=== PATIENT | female | born 1940 | race Caucasian/White ===

== ENCOUNTER 2020-10-23 09:42 | Emergency (ER) | payer MEDICARE, SELFPAY ==
[2020-10-23 09:44] VITALS: BP 146/84; PULSE 64; RESP 16; TEMP 36.4; O2SAT 99; BMI 25.0
--- NOTE | 2020-10-23 10:04 | EKG12_ITS ---
Test Reason : CP Blood Pressure : / mmHG Vent. Rate : 067 BPM Atrial Rate : 067 BPM P-R Int : 134 ms QRS Dur : 080 ms QT Int : 404 ms P-R-T Axes : 014 -08 014 degrees QTc Int : 426 ms Normal sinus rhythm Normal ECG Confirmed by SHAUNA CABALLERO, ALMAZ ([id number]), photo editor MINERVA MCKEON ([id number]) on 10/26/2020 1:09:38 PM Referred By: ELOISE Confirmed By:ALMAZ VILLATORO MD
--- NOTE | 2020-10-23 10:06 | EDS_ITS ---
HPI History of Present Illness Chief Complaint: Chest Pain Narrative Narrative: 80-year-old female presenting with chest pain which she describes as aching in the left upper chest. This does not radiate. This was intermittent for the last couple of days. She cannot tell me how long it lasts. She has felt short of breath with this but did not feel lightheaded and did not get diaphoretic. She states she has not had any pain since yesterday. Patient states she has no history of DVT/PE. While interviewing her she became very tearful and states that one of her cats 2 weeks ago and she has been having trouble dealing with this and feels more confused and depressed. She is also worried that her other cat the same age as not doing well. She is not suicidal or homicidal but she states the world is closing in on her. [facility] Medical History (Updated 10/23/20 @ 09:45 by Joslyn Aguilar) Asthma Home Medications NK 10/23/20 [History Last Taken Unknown] Allergy/AdvReac Type Severity Reaction Status Date / Time No Known Allergies Allergy Verified 10/23/20 09:43 Social History Smoking Status: Never smoker ROS [facility] ED Constitutional Constitutional ED: Denies chills, fever(s) or sweats Eyes Eyes: Denies blurry vision or change in vision ENT ENT ED: Denies rhinorrhea or sore throat Cardiovascular Cardiovascular: Reports chest pain; Denies palpitations or racing heartbeat Respiratory/Chest Respiratory/Chest: Reports cough and dyspnea Gastrointestinal Gastrointestinal: Denies abdominal pain or nausea Genitourinary Genitourinary ED: Denies dysuria or hematuria Musculoskeletal Musculoskeletal: Denies arthralgias or myalgias Integumentary Denies abscess or rash Neurologic Neurologic: Denies headache(s), paresthesias or weakness Psychiatric Psychiatric: Reports depression; Denies suicidal ideation or suicidal thoughts EXAM Physical Exam Const Vital Signs: 10/23/20 09:44 10/23/20 09:48 10/23/20 10:13 Temperature 97.5 F L Temperature Source Temporal Pulse Rate 64 Respiratory Rate 16 Respiratory Effort Short of Breath Respiratory Pattern Normal Blood Pressure 146/84 H Blood Pressure Mean 104 Pulse Ox 99 99 Oxygen Delivery Method Room Air Room Air 10/23/20 12:08 Temperature Temperature Source Pulse Rate Respiratory Rate 16 Respiratory Effort Respiratory Pattern Blood Pressure 158/78 H Blood Pressure Mean Pulse Ox 98 Oxygen Delivery Method Positive well developed General Appearance ED: well developed and NAD HEENT normocephalic and atraumatic Eyes PERRL and EOMs intact bilaterally Chest Wall inspection of chest normal and palpation of chest normal Resp normal respiratory effort Effort and Inspection: respiratory distress Cardio regular rate and regular rhythm Extremity normal to inspection General Extremety ED: Negative for tenderness Neuro oriented x3 Sensorium / Orientation: awake and alert Psych Mood & Affect: depressed and tearful Skin no rashes or lesions noted and no wounds Heart Score History: Slightly/Non-Suspicious ECG: Normal Age: >/= 65 years Risk Factors: 1 or 2 Risk Factors Troponin: </= Normal Limit Score: 3 MDM MDM MDM Narrative Medical decision making narrative: Patient presenting with intermittent chest pain and confusion which seems to be related to the of her cat and depression. She is tearful on exam and concern for her other cat that the same age. Patient had EKG performed on arrival which is sinus rhythm at 87 bpm without signs of ischemic change or dysrhythmia my interpretation. Chest x-ray showed no acute cardiopulmonary process on my interpretation and the radiologist does agree. Lab work-up is unremarkable. Her D-dimer was elevated however. She had CTA of the chest which did not show any pulmonary emboli or dissection. There is no pneumonia present. Troponin was negative. Patient was offered outpatient therapy by social work to help her with her depression however she was too concerned she would have to leave her cat 3 times a week to do this. She states that she will follow-up with her regular physician as needed. Impression: 1. Chest pain 2. Depression Lab Data Attestation: I reviewed the patient's lab results. Labs: Laboratory Results - last 24 hr 10/23/20 10/23/20 10/23/20 09:57 09:57 10:10 WBC 5.4 RBC 4.36 Hgb 12.8 Hct 40.6 MCV 93.1 MCH 29.4 MCHC 31.5 L RDW Std Deviation 46.2 H RDW Coeff of Vashti 13.4 Plt Count 207 MPV 9.5 Immature Gran % (Auto) 0.400 Neut % (Auto) 64.6 Lymph % (Auto) 24.9 White % (Auto) 6.9 Eos % (Auto) 2.8 Baso % (Auto) 0.4 Absolute Neuts (auto) 3.5 Absolute Lymphs (auto) 1.34 Nucleated RBC % 0 D-Dimer Quant (PE/DVT) 1.95 H* Sodium 140 Potassium 3.9 Chloride 107 Carbon Dioxide 26.0 Anion Gap 7 BUN 19 H Creatinine 1.09 H Estim Creat Clear Calc 32.01 Est GFR (MDRD) Af Amer 62 Est GFR (MDRD) Non-Af 51 L BUN/Creatinine Ratio 17.4 Glucose 144 H Calcium 8.8 Troponin I High Sens 4.5 Radiography Diagnostic Testing: Radiology Impression Chest X-Ray 10/23/20 10:20 IMPRESSION: No acute abnormalities seen. Electronically Signed: Mukesh Blanco MD at 10:46 EDT , Service support , Chest CTA 10/23/20 10:41 IMPRESSION: Mild degree of increased markings at the lung bases with bronchiectasis suggestive of scarring. No evidence of pulmonary embolism. Electronically Signed: Mukesh Blanco MD at 11:22 EDT , Service support , Discharge Plan Triage Chief Complaint: Chest Pain ED Provider: Alexys Hernández Dx/Rx/DC Orders Instructions: ED Chest Pain, Noncardiac, ED Depression Prescriptions: No Action NK RF: 0 Primary Care Provider: Javier Santoyo III Referrals: Care Physician,No Primary [NON-STAFF] - Disposition Disposition: Home, Self Care Discharge Date/Time: 10/23/20 12:09
[2020-10-23 10:13] VITALS: O2SAT 99
[2020-10-23 10:15] LABS: Absolute Lymphocyte Count 1.34 X10^3/uL (0.83-4.51); Absolute Neutrophil Count 3.5 X10^3/uL (2.0-7.7); Basophil# 0.02 X10^3/uL; Basophil% 0.4 % (0-1); Eosinophil# 0.15 X10^3/uL; Eosinophils% 2.8 % (0-5); Hematocrit 40.6 % (37-47); Hemoglobin 12.8 g/dL (12.0-15.0); Lymphocyte # 1.34 X10^3/ul (0.83-4.51); Lymphocyte % 24.9 % (19-41); Mean Corp Hgb Conc 31.5 g/dL (32-36); Mean Corpuscular Hgb 29.4 pg (27.0-32.0); Mean Corpuscular Volume 93.1 fL (81-99); Mean Platelet Vol. 9.5 fl (6.2-12.0); Monocyte# 0.37 X10^3/uL; Monocyte% 6.9 % (0-10); NRBC Flagged by Analyzer 0 % (0-5); Neutrophil # 3.49 X10^3/uL (2.7-7.7); Neutrophil % 64.6 % (47-70); Platelet Count 207 K/mm3 (150-450); RBC Distribution Width CV 13.4 % (11.6-14.6); RBC Distribution Width SD 46.2 fl (35.1-43.9); Red Blood Count 4.36 M/mm3 (4.2-5.4); White Blood Count 5.4 K/mm3 (4.4-11.0)
--- NOTE | 2020-10-23 10:20 | RAD_ITS ---
STUDY: X-RAY CHEST REASON FOR EXAM: Female, 80 years old. Intermittent confusion for 2 weeks and chest pain. TECHNIQUE: Single AP portable view of the chest. COMPARISON: None. FINDINGS: EKG electrodes are seen. The lungs are clear and expanded. There is no demonstrated pleural abnormality. Normal size heart. Normal mediastinum and ozzy. Normal visualized pulmonary arteries. There is atherosclerotic tortuosity of the aortic arch and descending thoracic aorta. There are diffuse degenerative changes of the visualized thoracic spine. Normal visualized ribs, clavicles, and shoulders. There is no demonstrated abnormality of the visualized soft tissue structures of the upper abdomen. RAD/Chest 1 View (Portable) IMPRESSION: No acute abnormalities seen. Electronically Signed: Mukesh Blanco MD at 10:46 EDT , Service support ,
--- NOTE | 2020-10-23 10:29 | ED.RN ---
PT GIVES THIS RN PERMISSION TO SHARE MEDICAL INFORMATION WITH PT DAUGHTER ADRIANE. CELL PHONE NUMBER IS [phone], AND ZANDER PHONE [phone].
[2020-10-23 10:31] LABS: Anion Gap 7 (5-15); BUN 19 mg/dL (7-18); BUN/Creat Ratio 17.4 RATIO (10-20); Calcium,Total 8.8 mg/dL (8.5-10.1); Chloride 107 mmol/L (98-107); Creatinine, Serum 1.09 mg/dL (0.55-1.02); EST Glomerular Filtration Rate 51 mL/min (>60); Est Glom Filt Rate - Afr Amer 62 mL/min (>60); Estimated Creatinine Clearance 32.01 ml/min; Glucose 144 mg/dL (74-106); Potassium 3.9 mmol/L (3.5-5.1); Sodium Level 140 mmol/L (136-145); Troponin-I HS 4.5 pg/mL (3.0-53.7)
[2020-10-23 10:32] LABS: D-Dimer Quantitative (DVT/PE) 1.95 FEU/ug/m (0.27-0.49)
--- NOTE | 2020-10-23 10:41 | CT_ITS ---
STUDY: CTA CHEST REASON FOR EXAM: Female, 80 years old. Chest pain RADIATION DOSAGE (If Supplied By Facility): CTDIvol = ( 4.54 ) mGy, DLP = ( 139.78 ) mGycm TECHNIQUE: The examination was performed with the intravenous administration of IV 100mL Isovue-300. Post-processing of the angiographic images was performed, with multiplanar reformation and 3D reconstruction. Individualized dose optimization techniques were used for this CT. COMPARISON: Comparison is made with prior chest radiograph done earlier today. FINDINGS: Normal enhancement of the main pulmonary artery and right and left pulmonary arteries. Normal enhancement of the bilateral peripheral pulmonary arteries. There is no demonstrated pulmonary embolism. There is atherosclerotic calcification of the aortic arch with tortuosity. There is no demonstrated aortic dissection. Normal heart and pericardium. Normal mediastinum. Normal hilar regions. Normal visualized trachea and bronchi. The lungs are well expanded. Mild degree of the increased markings at the lung bases suggestive of mild basilar scarring and/or atelectasis with evidence of bronchiectasis. Normal pleura. Normal chest wall structures. There are degenerative changes of thoracic spine. Normal visualized upper abdomen. CT/CTA Chest W/WO Contrast IMPRESSION: Mild degree of increased markings at the lung bases with bronchiectasis suggestive of scarring. No evidence of pulmonary embolism. Electronically Signed: Mukesh Blanco MD at 11:22 EDT , Service support ,
--- NOTE | 2020-10-23 11:07 | CM.ED ---
Addendum entered by Layne Gutierrez 10/23/20 11:40: SW also provided patient, via nurses discharge paperwork, list of PCP as patient's PCP had retired (Dr. Santoyo). Patient said that she planned to go to her 's PCP but could not recall her 's PCP. Plan: Discharge Home with paperwork Original Note: MIGUEL ANGEL Note Referral source: MD Referral Reason: Patient was crying in her room over the loss of her cat and appears to be depressed. was not offering support. Patient denies SI/HI SW met with patient in the room. No one else was in the room.Patient talked about cat that recently but appropriately was tearful when talking about the loss. Patient talked about how her was fine until a couple of months ago. Patient said that her is confused.. just as bad as me. Patient said that she feels that I am not sure who is in charge and feels at time that I can't take the load. Patient said that her hovers over her and drives me nuts. Patient said that she has just recently spoken to her about getting plots. Patient was provided emotional support. Patient said that she is concerned about finances as her has done the finances for years and she has no idea what is going on in regards to the money and she said I don't want that to affect the children or grandchildren. 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 Patient was provided emotional support. SW discussed counseling and the hospital IOP/PHP program. Patient said that she did not think she would like groups and nor would she fit in in relations to her generation. Patient said that she was unsure about her being alone for period of time. SW discussed the possibility of the [facility] to add support to patient. Patient said that she does not think that there is anything medically wrong with her but it was just overwhelming with her. Patient was also encouraged to talk to her PCP. Patient does not have a PCP but plans to get her 's PCP. SW encouraged patient to speak to her PCP about medication that may assist with depression. Patient verbalized understanding and stated that she knows her brother takes medication for depression and it's helpful. Patient talked about how she is the oldest of 10 children so her siblings come to her for support. Patient said that she is supporting her brother, whose has Lara Gehrig's disease and son has cancer, through having ongoing conversation. Patient was also provided information on [facility] and the services they provide. Patient denied any SI/HI and stated she would be safe at home and had no going home concerns. SW provided list of counseling in the area, Information about [facility] and [facility]. Emotional Support provided. MIGUEL ANGEL updated RN and MD. RN said that patient's daughter, Toya, has her contact information in the chart. SW asked patient if she gave permission for this news writer to speak to her daughter, Toay, and patient voiced this news writer could speak to her daughter, Toya. SW called Toya, patient's daughter. SW updated Toya that this news writer had spoken to her mother, the patient. SW explained providing mother information on counseling, medication via PCP and [facility]. Toya said I don't want anything to give red flags for my parents and then continued on to state that she wants to get to the bottom of what is happening with patient's mother and said Your not a doctor or nurse.. your a social worker clinical and I don't think that is the problem. RN updated. Layne BENITEZ
--- NOTE | 2020-10-23 11:55 | ED.RN ---
PT GIVES THIS RN PERMISSION TO PATRICK WITH THE SON. SON INFORMED OF PLAN OF CARE, AND DISCHARGE.
[2020-10-23 12:08] VITALS: BP 158/78; RESP 16; O2SAT 98
== END 2020-10-23 12:09 | disposition home or self-care (01) ==
PROVIDERS: Emergency Provider Student in an Organized Health Care Education/Training Program; PCP Family Medicine
DX: R07.9 Chest pain, unspecified (principal); F32.9 Major depressive disorder, single episode, unspecified
CPT/HCPCS: 71045; 71275; 80048; 84484; 85025; 85379; 93005; 99285; Q9967; A4216

== ENCOUNTER 2022-01-23 07:42 | Inpatient (IN) | payer MEDICARE, SELFPAY ==
[2022-01-23] VITALS (8 sets, daily range): BP systolic 124–155; BP diastolic 56–89; PULSE 60–68; RESP 15–18; TEMP 36.3–37.7; O2SAT 95–100; BMI 23.3; BMI 23.8
--- NOTE | 2022-01-23 08:00 | CT_ITS ---
STUDY: CT ABDOMEN AND PELVIS WITH CONTRAST REASON FOR EXAM: Female, 81 years old. Diffuse abdominal pain, nausea RADIATION DOSAGE (If Supplied By Facility): CTDIvol = ( 9.99 ) mGy, DLP = ( 760.61 ) mGycm TECHNIQUE: Transaxial images were obtained from the dome of the diaphragm to the symphysis pubis without oral contrast. IV 75mL Isovue-300 was administered. Sagittal and coronal images were reconstructed. Individualized dose optimization techniques were used for this CT. COMPARISON: None. FINDINGS: The visualized lung bases are unremarkable. The visualized portions of the heart are within normal limits. Normal liver. Normal gallbladder and extrahepatic biliary system. Normal spleen. Normal pancreas. Normal bilateral adrenal glands. Normal right kidney. Normal left kidney. Normal visualized stomach. Multiple nondistended fluid-filled small and large bowel loops in all 4 quadrants of the abdomen consistent with a diffuse enteritis. No ileus or obstruction. No perforation or abscess. Appendix not visualized. There is diffuse atherosclerotic calcification of the abdominal aorta with elongation and tortuosity, but without a demonstrated aneurysm. Normal inferior vena cava. Normal retroperitoneum. Normal urinary bladder. The uterus is present, the endometrium cannot be accurately evaluated with CT. There is a calcified uterine fibroid. Normal abdominal wall. There are diffuse degenerative changes of the visualized lumbar spine, and pelvis. CT/Abdomen/Pelvis W IV Cont ONLY IMPRESSION: Multiple nondistended fluid-filled small bowel and large bowel loops in all 4 quadrants of the abdomen consistent with a diffuse enteritis. No perforation, abscess, ileus or obstruction. Uterus is present, the endometrium cannot be accurately evaluated with CT. No free intraperitoneal fluid, air, or suspicious adenopathy Degenerative bony changes Electronically Signed: Manny Chan MD at 9:17 EDT ,
--- NOTE | 2022-01-23 08:02 | EDS_ITS ---
HPI HPI - GI History of Present Illness Chief Complaint: Abd Pain Narrative Narrative: 81-year-old female past medical history of dementia presents via EMS with bilateral lower quadrant abdominal cramping that began this morning. She states that 2 hours ago, she woke from sleep and had abdominal cramping. She has nauseated but has not vomited. She had diarrhea this morning with liquid stool. She states it feels as if she is giving with her cramping. She denies any fevers or chills. No dysuria or hematuria. No blood in her stool. She denies any significant past surgical history to her abdomen. No exacerbating or alleviating factors. She states she is never had abdominal cramping this bad. [facility] Medical History Asthma Home Medications NK 10/23/20 [History Last Taken Unknown] Allergy/AdvReac Type Severity Reaction Status Date / Time No Known Allergies Allergy Verified 10/23/20 09:43 Social History Smoking Status: Never smoker ROS ROS ED ROS Narrative Constitutional: No fever, no chills. HEENT: No sore throat. No neck pain. No loss of vision. No rhinorrhea. Cardiovascular: No chest pain. No palpitations. No pedal edema. Respiratory: No cough, no shortness of breath. Abdominal: Bilateral lower quadrant abdominal pain. Positive nausea. No vomiting. Positive diarrhea/liquid stool. Genitourinary: No dysuria. No hematuria. Musculoskeletal: No myalgias. No arthralgias. Neurologic: No headaches. No dizziness. No lightheadedness. Skin: No rash. No change in color. Psychiatric: No depression. No anxiety. EXAM Physical Exam Narrative Exam Narrative: Afebrile. Vital signs noted. HEENT: Normocephalic. Atraumatic. PERRL, EOMI. Neck soft and supple. No point tenderness or step off. Cardiovascular: Regular rate and rhythm. No murmurs, rubs, or gallops appreciated. Respiratory: No tachypnea. Lungs clear to auscultation bilaterally. Gastrointestinal: Abdomen soft, mild diffuse tenderness to palpation, more so in bilateral lower quadrants and epigastrium, with normoactive to increased bowel sounds. No rebound or guarding. Neurological: Awake. Alert. Nonfocal, nonlateralizing. Skin: No rash. Normal color. No pallor. Musculoskeletal: No pedal edema. Full range of motion extremities. Const Vital Signs: 01/23/22 07:43 Temperature 98.6 F Temperature Source Oral Pulse Rate 68 Respiratory Rate 16 Blood Pressure 155/74 H Blood Pressure Mean 101 Pulse Ox 96 Oxygen Delivery Method Room Air MDM MDM MDM Narrative Medical decision making narrative: Comprehensive work-up was pursued. I obtain basic lab work including CBC, CMP, lipase along with urinalysis. I do feel that given her diarrhea and abdominal tenderness/cramping that CT imaging is warranted. CBC shows normal white count of 6.1 with hemoglobin normal at 13.7, hematocrit 42.7. Platelet count 195. Her CMP shows chloride elevated at 109 with a creatinine of 1.10 and a normal BUN of 17. LFTs are grossly normal. Lipase elevated at 1637. This is consistent with acute pancreatitis. Her urinalysis is negative for infection. CT imaging shows air-fluid levels throughout the small and large bowel consistent with enteritis. There was no inflammation around the pancreas noted, however given her epigastric pain and elevated lipase, I feel she warrants admission for her pancreatitis and enteritis. Patient did decline pain medications such as morphine currently. I discussed patient with Dr. Looney for admission. Disposition is admit in stable condition. Lab Data Attestation: I reviewed the patient's lab results. Labs: Laboratory Results - last 24 hr 01/23/22 01/23/22 01/23/22 08:10 08:10 09:30 WBC 6.1 RBC 4.62 Hgb 13.7 Hct 42.7 MCV 92.4 MCH 29.7 MCHC 32.1 RDW Std Deviation 44.1 H RDW Coeff of Vashti 13.1 Plt Count 195 MPV 9.3 Immature Gran % (Auto) 0.500 Neut % (Auto) 83.2 H Lymph % (Auto) 10.2 L [place] % (Auto) 3.1 Eos % (Auto) 2.8 Baso % (Auto) 0.2 Absolute Neuts (auto) 5.0 Absolute Lymphs (auto) 0.62 L Nucleated RBC % 0 Sodium 142 Potassium 4.2 Chloride 109 H Carbon Dioxide 27.0 Anion Gap 6 BUN 17 Creatinine 1.10 H Estim Creat Clear Calc 31.19 Est GFR (MDRD) Af Amer 61 Est GFR (MDRD) Non-Af 51 L BUN/Creatinine Ratio 15.5 Glucose 99 Calcium 9.0 Total Bilirubin 0.40 AST 26 ALT 29 Alkaline Phosphatase 67 Total Protein 6.6 Albumin 3.3 Globulin 3.3 Albumin/Globulin Ratio 1.0 Lipase 1637 H Urine Color Yellow Urine Clarity Clear Urine pH 5.0 Ur Specific [place] 1.010 Urine Protein Negative Urine Glucose (UA) Normal Urine Ketones Negative Urine Occult Blood 50 H Urine Nitrite Negative Urine Bilirubin Negative Urine Urobilinogen Normal Ur Leukocyte Esterase 100 H Urine RBC 0 SEEN Urine WBC 0-5 SEEN Ur Squamous Epith Cells 0-5 SEEN Urine Bacteria 0 SEEN Urine Mucus 0 SEEN Radiography Diagnostic Testing: Clinical Impression(s) from Imaging Studies Abdomen/Pelvis CT 01/23/22 08:00 IMPRESSION: Multiple nondistended fluid-filled small bowel and large bowel loops in all 4 quadrants of the abdomen consistent with a diffuse enteritis. No perforation, abscess, ileus or obstruction. Uterus is present, the endometrium cannot be accurately evaluated with CT. No free intraperitoneal fluid, air, or suspicious adenopathy Degenerative bony changes Electronically Signed: Manny Chan MD at 9:17 EDT , Discharge Plan Dx/Rx/DC Orders Clinical Impression: Pancreatitis, Enteritis, Diarrhea Disposition Disposition: Acute Care [facility]
[2022-01-23] MEDS: 0.9% Normal Saline 1,000 ML 1000 ML IV (08:20)
[2022-01-23 08:22] LABS: Absolute Lymphocyte Count 0.62 X10^3/uL (0.83-4.51); Basophil# 0.01 X10^3/uL; Basophil% 0.2 % (0-1); Eosinophil# 0.17 X10^3/uL; Eosinophils% 2.8 % (0-5); Hematocrit 42.7 % (37-47); Hemoglobin 13.7 g/dL (12.0-15.0); Lymphocyte # 0.62 X10^3/ul (0.83-4.51); Lymphocyte % 10.2 % (19-41); Mean Corp Hgb Conc 32.1 g/dL (32-36); Mean Corpuscular Hgb 29.7 pg (27.0-32.0); Mean Corpuscular Volume 92.4 fL (81-99); Mean Platelet Vol. 9.3 fl (6.2-12.0); Monocyte# 0.19 X10^3/uL; Monocyte% 3.1 % (0-10); NRBC Flagged by Analyzer 0 % (0-5); Neutrophil # 5.03 X10^3/uL (2.7-7.7); Neutrophil % 83.2 % (47-70); Platelet Count 195 K/mm3 (150-450); RBC Distribution Width CV 13.1 % (11.6-14.6); RBC Distribution Width SD 44.1 fl (35.1-43.9); Red Blood Count 4.62 M/mm3 (4.2-5.4); White Blood Count 6.1 K/mm3 (4.4-11.0)
[2022-01-23 08:38] LABS: AST(SGOT) 26 U/L (15-37); Alanine Aminotransfer ALT/SGPT 29 U/L (13-56); Albumin, Serum 3.3 g/dL (3.2-5.0); Alkaline Phosphatase 67 U/L (45-117); Anion Gap 6 (5-15); BUN 17 mg/dL (7-18); BUN/Creat Ratio 15.5 RATIO (10-20); Chloride 109 mmol/L (98-107); EST Glomerular Filtration Rate 51 mL/min (>60); Est Glom Filt Rate - Afr Amer 61 mL/min (>60); Estimated Creatinine Clearance 31.19 ml/min; Globulin 3.3 g/dL (2.2-4.2); Glucose 99 mg/dL (74-106); Lipase 1637 U/L (73-393); Potassium 4.2 mmol/L (3.5-5.1); Protein, Total 6.6 g/dL (6.4-8.2); Sodium Level 142 mmol/L (136-145)
[2022-01-23 09:34] LABS: Bacteria 0 SEEN /hpf (None Seen); Mucous, Urine 0 SEEN /hpf (<or=2+); Red Blood Cells-Urine 0 SEEN /hpf (0-5)
[2022-01-23 09:45] LABS: Color, Urine Yellow (Yellow); Glucose, Dipstick Normal (Normal); Ketone-Dipstick Negative (Negative); Leukocyte Esterase-Dipstick 100 /ul (Negative); Nitrite-Dipstick Negative (Negative); Occult Blood-Urine 50 /ul (Negative); Protein-Dipstick Negative (Negative); Urine Bilirubin Dipstick Negative (Negative); Urine Clarity Clear (Clear); Urine Urobilinogen Normal (Normal)
[2022-01-23 10:00] LABS: Squamous Epithelial Cells - UA 0-5 SEEN /hpf (5-10); White Blood Cells 0-5 SEEN /hpf (0-5)
--- NOTE | 2022-01-23 10:25 | PCM.HP.STD ---
HPI - General General Date of Admission: 01/23/22 Date of Service: 01/23/22 Chief Complaint: Abdominal pain HPI Narrative MARCO JACQUES, is a 81 F who presents with abdominal pain patient symptoms started in the early hours of the morning of her admission. Pain was located around the umbilical region. Patient did describe the pain as being crampy in nature. She equated her pain being similar to childbirth. Patient did experience diarrhea as well. She however denied any nausea no vomiting. She did deny any subjective fever but experience chills. She presented to the emergency department due to the persistent nature of her symptoms. Imaging studies obtained in the ED did show Multiple nondistended fluid-filled small bowel and large bowel loops in all 4 quadrants of the abdomen consistent with a diffuse enteritis.? No perforation, abscess, ileus or obstruction.. She was also found to have elevated lipase levels. Admitted to regular nursing floor for further management [facility] Medical History Asthma Dementia Home Medications NK 10/23/20 [History Last Taken Unknown] Allergy/AdvReac Type Severity Reaction Status Date / Time No Known Allergies Allergy Verified 10/23/20 09:43 Family History (Updated 01/23/22 @ 10:[address] Esteban Emmanuel MD) Mother Diabetes Social History Smoking Status: Never smoker ROS ROS Narrative GENERAL: Has chills but denies fever HEENT: denies headache, sinus congestion, or drainage, dysphagia RESPIRATORY: denies cough, sputum production, shortness of breath, CARDIAC: denies chest pain, palpitations, orthopnea, PND GASTROINTESTINAL: Abdominal pain and diarrhea GENITOURINARY: denies dysuria, urgency, frequency, heamaturia EXTREMITY: denies swelling MUSCULOSKELETAL: denies current joint pain or tenderness NEUROLOGIC: denies focal numbness, weakness, tingling HEMATOLOGIC: denies easy bruising and/or hemorrhage INTEGUMENT: denies rashes PSYCHIATRIC: denies suicidal or homicidal ideation Vital Signs Vital Signs Vital Signs: 01/23/22 07:43 01/23/22 10:13 Temperature 98.6 F 97.4 F L Temperature Source Oral Oral Pulse Rate 68 61 Respiratory Rate 16 16 Blood Pressure 155/74 H 151/89 H Blood Pressure Mean 101 109 Pulse Ox 96 98 Oxygen Delivery Method Room Air Weight Weight: 58 kg Body Mass Index (BMI) 23.3 Physical Exam Narrative GENERAL: cooperative HEENT: Atraumatic; normocephalic EYES; Anicteric, Normal Conjunctiva NECK; supple, normal thyroid, RESPIRATORY: Diminished to auscultation CARDIOVASCULAR: Regular S1 S2, GI: soft, normoactive bowel sounds, mild periumbilical tenderness : No Renal angle tenderness; EXTREMITIES: No edema, no clubbing, MUSCULOSKELETAL: no muscle wasting NEURO: Awake; no lateralizing signs. SKIN: No Rash PSYCH; Flat affect Results Lab / Micro Data Result Diagrams: 01/23/22 08:10 01/23/22 08:10 Labs: Laboratory Results - last 24 hr 01/23/22 08:10: WBC 6.1, RBC 4.62, Hgb 13.7, Hct 42.7, MCV 92.4, MCH 29.7, MCHC 32.1, RDW Std Deviation 44.1 H, RDW Coeff of Vashti 13.1, Plt Count 195, MPV 9.3, Immature Gran % (Auto) 0.500, Neut % (Auto) 83.2 H, Lymph % (Auto) 10.2 L, [place] % (Auto) 3.1, Eos % (Auto) 2.8, Baso % (Auto) 0.2, Absolute Neuts (auto) 5.0, Absolute Lymphs (auto) 0.62 L, Nucleated RBC % 0 01/23/22 08:10: Sodium 142, Potassium 4.2, Chloride 109 H, Carbon Dioxide 27.0, Anion Gap 6, BUN 17, Creatinine 1.10 H, Estim Creat Clear Calc 31.19, Est GFR (MDRD) Af Amer 61, Est GFR (MDRD) Non-Af 51 L, BUN/Creatinine Ratio 15.5, Glucose 99, Calcium 9.0, Total Bilirubin 0.40, AST 26, ALT 29, Alkaline Phosphatase 67, Total Protein 6.6, Albumin 3.3, Globulin 3.3, Albumin/Globulin Ratio 1.0, Lipase 1637 H 01/23/22 09:30: Urine Color Yellow, Urine Clarity Clear, Urine pH 5.0, Ur Specific [place] 1.010, Urine Protein Negative, Urine Glucose (UA) Normal, Urine Ketones Negative, Urine Occult Blood 50 H, Urine Nitrite Negative, Urine Bilirubin Negative, Urine Urobilinogen Normal, Ur Leukocyte Esterase 100 H, Urine RBC 0 SEEN, Urine WBC 0-5 SEEN, Ur Squamous Epith Cells 0-5 SEEN, Urine Bacteria 0 SEEN, Urine Mucus 0 SEEN Radiology Impression Abdomen/Pelvis CT 01/23/22 08:00 IMPRESSION: Multiple nondistended fluid-filled small bowel and large bowel loops in all 4 quadrants of the abdomen consistent with a diffuse enteritis. No perforation, abscess, ileus or obstruction. Uterus is present, the endometrium cannot be accurately evaluated with CT. No free intraperitoneal fluid, air, or suspicious adenopathy Degenerative bony changes Electronically Signed: Manny Chan MD at 9:17 EDT , Assessment & Plan Assessment/Plan (1) Enteritis: (2) Pancreatitis: PLAN: Plan Patient is an 81-year-old lady admitted with abdominal pain and diarrhea CT of the abdomen obtained did show multiple nondistended fluid-filled small bowel and large bowel loops in all 4 quadrants of the abdomen consistent with a diffuse enteritis.? No perforation, abscess, ileus or obstruction.. She was also found to have elevated lipase levels 1. Acute enteritis ? Possibly viral patient has been admitted to regular nursing floor managed symptomatically with IV fluids antinausea medication as well as pain meds. As part of patient's evaluation ordered to for enteric pathogens, stool for C. difficile and also ordered rapid COVID test 2. Acute pancreatitis ? Etiology not clear at this point CT of the abdomen with normal gallbladder and extrahepatic biliary system. We will monitor with repeat lipase levels in a.m. 3. Dementia Per history ? Patient not sure of her home medication plan is to reconcile patient home meds once accurate list is received 4. Mild intermittent asthma ? Currently not in exacerbation aerosol treatment as needed 5. DVT prophylaxis ? SC Lovenox Advance planning; did discuss with the patient regarding advanced directives as well as CODE STATUS. Did explain the various scenarios involved ( FULL CODE, DNR CCA, DNR CCA with no intubation, and DNR CC and what each meant) patient elected to remain full code with CPR and intubation if needed. Order was placed. Time spent on discussion 18 minutes. Charges/Coding Visit Charges Inpatient E&M: 38659 Init Hosp L2
[2022-01-23] MEDS: Dextrose 5%/0.9% NaCl 1,000 ML 150 ML IV ×2 (12:04→19:27)
[2022-01-23] MEDS: Ceftriaxone 1 GM/50 ML BAG IV (13:42)
[2022-01-23] MEDS: Donepezil HCl 10 MG Tablet PO (21:01)
[2022-01-24 02:00] VITALS: BP 130/67; PULSE 58; RESP 14; TEMP 37.3; O2SAT 95
[2022-01-24] MEDS: Dextrose 5%/0.9% NaCl 1,000 ML 150 ML IV ×2 (02:45→09:33)
[2022-01-24 06:05] LABS: Absolute Neutrophil Count 1.7 X10^3/uL (2.0-7.7); Eosinophil# 0.13 X10^3/uL; Eosinophils% 4.3 % (0-5); Hematocrit 39.9 % (37-47); Hemoglobin 12.8 g/dL (12.0-15.0); Mean Corp Hgb Conc 32.1 g/dL (32-36); Mean Corpuscular Hgb 30.1 pg (27.0-32.0); Mean Corpuscular Volume 93.9 fL (81-99); Mean Platelet Vol. 9.2 fl (6.2-12.0); Monocyte# 0.26 X10^3/uL; Monocyte% 8.7 % (0-10); NRBC Flagged by Analyzer 0 % (0-5); Neutrophil % 56.7 % (47-70); Platelet Count 166 K/mm3 (150-450); RBC Distribution Width CV 13.1 % (11.6-14.6); RBC Distribution Width SD 45.1 fl (35.1-43.9); Red Blood Count 4.25 M/mm3 (4.2-5.4)
[2022-01-24 06:36] LABS: AST(SGOT) 22 U/L (15-37); Alanine Aminotransfer ALT/SGPT 23 U/L (13-56); Albumin, Serum 2.6 g/dL (3.2-5.0); Alkaline Phosphatase 50 U/L (45-117); Anion Gap 5 (5-15); BUN 8 mg/dL (7-18); Bilirubin, Direct 0.07 mg/dL (0.00-0.30); Calcium,Total 8.1 mg/dL (8.5-10.1); Chloride 116 mmol/L (98-107); EST Glomerular Filtration Rate 73 mL/min (>60); Est Glom Filt Rate - Afr Amer 88 mL/min (>60); Estimated Creatinine Clearance 38.94 ml/min; Globulin 2.7 g/dL (2.2-4.2); Glucose 119 mg/dL (74-106); Lipase 145 U/L (73-393); Magnesium 1.8 mg/dL (1.6-2.6); Potassium 3.5 mmol/L (3.5-5.1); Protein, Total 5.3 g/dL (6.4-8.2); Sodium Level 144 mmol/L (136-145)
[2022-01-24 07:45] VITALS: BP 148/60; PULSE 55; RESP 18; TEMP 36.7; O2SAT 95
[2022-01-24] MEDS: Escitalopram Oxalate 10 MG Tablet 5 MG PO (08:02)
[2022-01-24] MEDS: Acetaminophen 325 MG Tablet 650 MG PO (08:02)
--- NOTE | 2022-01-24 09:09 | PCM.PN.HOSP ---
Subjective Subjective DOS: 01/24/22 CC: Multiple BMs Ms. Solis is an 81 y/o female who presented 01/23 with abdominal pain and diarrhea fro 1 day. She was admitted and given IVF and rocephin and is improving from a pain standpoint but has continued to have consistent watery green bowel movements and does have some residual pain as well as anorexia. Tolerated some clear liquids yesterday but no desire to eat. No nausea at this time. Denies SOB, does have some soreness in upper abdomen but no chest pain with movement. Some headache with pain behind the eyes. no swelling, no problems with urination, no other complaints. Objective Data Objective Data Vital Signs: Vital Signs Temp Pulse Resp BP Pulse Ox O2 Del Method 98.1 F 55 L 18 148/60 H 95 Room Air 01/24/22 07:45 01/24/22 07:45 01/24/22 07:45 01/24/22 07:45 01/24/22 07:45 01/24/22 07:45 Oxygen Delivery Method Room Air Weight: 55.5 kg Body Mass Index (BMI) 23.8 Intake & Output: Intake and Output for Last 24 Hours 01/22/22 01/23/22 01/24/22 23:59 23:59 23:59 Intake Total 2130 / 2480 1500 / 1500 Output Total 700 / 1100 600 / 600 Balance 1430 / 1380 900 / 900 Lab / Micro Data Result Diagrams: 01/24/22 05:40 01/24/22 05:40 Labs: Laboratory Results - last 24 hr 01/23/22 09:30: Urine Color Yellow, Urine Clarity Clear, Urine pH 5.0, Ur Specific [place] 1.010, Urine Protein Negative, Urine Glucose (UA) Normal, Urine Ketones Negative, Urine Occult Blood 50 H, Urine Nitrite Negative, Urine Bilirubin Negative, Urine Urobilinogen Normal, Ur Leukocyte Esterase 100 H, Urine RBC 0 SEEN, Urine WBC 0-5 SEEN, Ur Squamous Epith Cells 0-5 SEEN, Urine Bacteria 0 SEEN, Urine Mucus 0 SEEN 01/24/22 05:40: WBC 3.0 L, RBC 4.25, Hgb 12.8, Hct 39.9, MCV 93.9, MCH 30.1, MCHC 32.1, RDW Std Deviation 45.1 H, RDW Coeff of Vashti 13.1, Plt Count 166, MPV 9.2, Immature Gran % (Auto) 0.300, Neut % (Auto) 56.7, Lymph % (Auto) 30.0, [place] % (Auto) 8.7, Eos % (Auto) 4.3, Baso % (Auto) 0.0, Absolute Neuts (auto) 1.7 L, Absolute Lymphs (auto) 0.90, Nucleated RBC % 0 01/24/22 05:40: Sodium 144, Potassium 3.5, Chloride 116 H, Carbon Dioxide 23.0, Anion Gap 5, BUN 8, Creatinine 0.80, Estim Creat Clear Calc 38.94, Est GFR (MDRD) Af Amer 88, Est GFR (MDRD) Non-Af 73, BUN/Creatinine Ratio 10.0, Glucose 119 H, Calcium 8.1 L, Magnesium 1.8, Total Bilirubin 0.20, Direct Bilirubin 0.07, AST 22, ALT 23, Alkaline Phosphatase 50, Total Protein 5.3 L, Albumin 2.6 L, Globulin 2.7, Lipase 145 Micro: Microbiology 01/23/22 11:45 Stool Enteric Bacteriology - Final 01/23/22 11:45 Stool C. difficile DNA Amplification - Final 01/23/22 10:24 Nasal Secretion SARS-CoV-2 Antigen (Rapid) - Final Radiography Diagnostic Testing: Radiology Impression Abdomen/Pelvis CT 01/23/22 08:00 IMPRESSION: Multiple nondistended fluid-filled small bowel and large bowel loops in all 4 quadrants of the abdomen consistent with a diffuse enteritis. No perforation, abscess, ileus or obstruction. Uterus is present, the endometrium cannot be accurately evaluated with CT. No free intraperitoneal fluid, air, or suspicious adenopathy Degenerative bony changes Electronically Signed: Manny Chan MD at 9:17 EDT , Physical Exam Const alert and no apparent distress Constitutional Narrative: Oriented HEENT normocephalic and head/scalp atraumatic HEENT Narrative: dry oral mucosa Eyes Eyes Narrative: EOM grossly intact, anicteric Neck supple Resp normal respiratory effort and clear to auscultation bilaterally Cardio regular rate and regular rhythm GI soft to palpation GI Narrative: No rebound, guarding, rigidity, tenderness mild at time of exam, + bowel sounds Extremity Extremity Narrative: No edema appreciated Neuro moves all extremities Neuro Narrative: No overt focal deficits appreciated Psych Psych Narrative: Cooperative Assessment & Plan Assessment/Plan (1) Enteritis: (2) Pancreatitis: PLAN: Plan 1. Acute enteritis ? Possibly viral patient has been admitted to regular nursing floor managed symptomatically with IV fluids antinausea medication as well as pain meds Started on cipro anx start date 01/23 Is improving with current management but continues to have very frequent watery BMs with minimal PO tolerance at this time Continuse to require inpt management for IVF, currently at 150/hr Cdiff andstool specifmen negative Covid negative 2. Acute pancreatitis ? Epigrastric tenderness +lipase of [address] suggestive of enteritis and not pancreatitis but given 2/3 + pt meets criteria LFTs wnl, tenderness improving Lipase did go to 145 Advance diet as tolerated Continue IVF and monitoring 3. Dementia Per history On donepezil HR 55, between 50's and 60's No symptoms of low HR identified If HR goes lower can consider d/c of donepezil 4. Mild intermittent asthma ? Currently not in exacerbation aerosol treatment as needed 5. DVT prophylaxis ? SC Delmis Fong MD Charges/Coding Visit Charges Inpatient E&M: 99520 Subs Hosp L2
[2022-01-24] MEDS: Enoxaparin 40 MG/0.4 ML Syringe SC (09:33)
[2022-01-24] MEDS: Ceftriaxone 1 GM/50 ML BAG IV (09:33)
--- NOTE | 2022-01-24 11:00 | CASEMGMT ---
RN ELIAS Face to Face with patient for initial transition planning/care coordination assessment. RN CM introduced self and role at [facility]. Patient lying in bed, alert and oriented, at bedside. Patient willing to participate in assessment and is able to answer all questions appropriately. Care providers, pharmacy, and demographics verified. Patient wishes to discharge home, denies need for home health at this time. Patient states she has no further needs or concerns at this time. CM to follow for discharge planning needs that may arise. PCP: Mirta Specialists: none Preferred Pharmacy: [facility] Insurance: [facility] Prescription Benefit: yes Living Will/HPOA: yes, daughter Toya LNOK: , daughter Living Arrangements: Patient lives with in a 2 story home. Patient is independent and able to ambulate stairs. Transportation: daughter, DME/HHC: Patient has raised toilet and shower chair at home. Patient denies previous HHC or SNF Disposition Plan: Patient to discharge home with family support and follow-up plans in place. Olivia ALCANTARN, RN, CM
[2022-01-24 14:04] VITALS: BP 166/64; PULSE 55; RESP 18; TEMP 36.1; O2SAT 98
[2022-01-24] MEDS: Ensure Clear 120 ML Liquid PO ×2 (14:07→16:58)
[2022-01-24 16:12] VITALS: O2SAT 98
[2022-01-24] MEDS: 0.9% Saline Lock 10 ML Syringe IV (16:59)
[2022-01-24 19:53] VITALS: BP 147/72; PULSE 57; RESP 18; TEMP 36.7; O2SAT 97
[2022-01-24] MEDS: Donepezil HCl 10 MG Tablet PO (20:00)
[2022-01-24] MEDS: Mag Hydrox/Al Hydrox/Simeth 30 ML UDC PO (22:24)
[2022-01-25] MEDS: Ondansetron 4 MG/2 ML Vial IV (00:40)
[2022-01-25 02:50] VITALS: BP 143/64; PULSE 62; RESP 16; TEMP 36.9; O2SAT 95
[2022-01-25 04:50] LABS: Absolute Lymphocyte Count 1.28 X10^3/uL (0.83-4.51); Absolute Neutrophil Count 1.4 X10^3/uL (2.0-7.7); Basophil# 0.01 X10^3/uL; Basophil% 0.3 % (0-1); Eosinophil# 0.23 X10^3/uL; Eosinophils% 6.8 % (0-5); Hematocrit 40.2 % (37-47); Hemoglobin 12.8 g/dL (12.0-15.0); Lymphocyte # 1.28 X10^3/ul (0.83-4.51); Lymphocyte % 38.1 % (19-41); Mean Corp Hgb Conc 31.8 g/dL (32-36); Mean Corpuscular Hgb 29.3 pg (27.0-32.0); Mean Platelet Vol. 9.1 fl (6.2-12.0); Monocyte# 0.41 X10^3/uL; Monocyte% 12.2 % (0-10); NRBC Flagged by Analyzer 0 % (0-5); Neutrophil # 1.42 X10^3/uL (2.7-7.7); Neutrophil % 42.3 % (47-70); Platelet Count 171 K/mm3 (150-450); RBC Distribution Width SD 43.9 fl (35.1-43.9); Red Blood Count 4.37 M/mm3 (4.2-5.4); White Blood Count 3.4 K/mm3 (4.4-11.0)
[2022-01-25 05:20] LABS: AST(SGOT) 19 U/L (15-37); Alanine Aminotransfer ALT/SGPT 22 U/L (13-56); Albumin, Serum 2.7 g/dL (3.2-5.0); Alkaline Phosphatase 50 U/L (45-117); Anion Gap 6 (5-15); BUN 4 mg/dL (7-18); BUN/Creat Ratio 5.3 RATIO (10-20); Calcium,Total 8.4 mg/dL (8.5-10.1); Chloride 114 mmol/L (98-107); Creatinine, Serum 0.75 mg/dL (0.55-1.02); EST Glomerular Filtration Rate 78 mL/min (>60); Est Glom Filt Rate - Afr Amer 95 mL/min (>60); Estimated Creatinine Clearance 31.15 ml/min; Globulin 2.8 g/dL (2.2-4.2); Glucose 88 mg/dL (74-106); Potassium 3.4 mmol/L (3.5-5.1); Protein, Total 5.5 g/dL (6.4-8.2); Sodium Level 144 mmol/L (136-145)
[2022-01-25 09:05] VITALS: BP 146/63; PULSE 57; RESP 18; TEMP 36.7; O2SAT 96
[2022-01-25] MEDS: Ceftriaxone 1 GM/50 ML BAG IV (09:08)
[2022-01-25] MEDS: Escitalopram Oxalate 10 MG Tablet 5 MG PO (09:08)
[2022-01-25] MEDS: 0.9% Saline Lock 10 ML Syringe IV (09:08)
[2022-01-25] MEDS: Enoxaparin 40 MG/0.4 ML Syringe SC (09:08)
[2022-01-25] MEDS: Potassium Chloride Oral Tablet 20 MEQ 40 MEQ PO (12:07)
[2022-01-25] MEDS: Ensure Clear 120 ML Liquid PO ×3 (12:07→21:41)
[2022-01-25 14:31] VITALS: BP 135/66; PULSE 56; RESP 18; TEMP 36.6; O2SAT 96
--- NOTE | 2022-01-25 16:03 | CASEMGMT ---
Social Work Pt aware HCPOA is not on file with [facility]. Pt named Daughter, Toya as agent. Pt unsure about LW at this time. Pt to bring in HCPOA at next visit to [facility]. MEENU Peterson
[2022-01-25 16:18] VITALS: O2SAT 96
--- NOTE | 2022-01-25 17:33 | PCM.PN.HOSP ---
Subjective Subjective DOS 01/25/22 CC: Weak, diarrhea Pt continues to have multiple episodes of diarrhea and feels weak and tired. Appetite sub optimal and intermittent nausea. Also reports nausea last night. Urinating well, no chest pain or SOB. No other complaints this AM> Objective Data Objective Data Vital Signs: Vital Signs Temp Pulse Resp BP Pulse Ox O2 Del Method 97.9 F 56 L 18 135/66 H 96 Room Air 01/25/22 14:31 01/25/22 14:31 01/25/22 14:31 01/25/22 14:31 01/25/22 16:18 01/25/22 16:18 Oxygen Delivery Method Room Air Weight: 55.5 kg Body Mass Index (BMI) 23.8 Intake & Output: Intake and Output for Last 24 Hours 01/23/22 01/24/22 01/25/22 23:59 23:59 23:59 Intake Total 2130 / 2480 3650 / 3650 850 / 850 Output Total 700 / 1100 1700 / 1700 700 / 700 Balance 1430 / 1380 1950 / 1950 150 / 150 Lab / Micro Data Result Diagrams: 01/25/22 04:13 01/25/22 04:13 Labs: Laboratory Results - last 24 hr 01/25/22 04:13: WBC 3.4 L, RBC 4.37, Hgb 12.8, Hct 40.2, MCV 92.0, MCH 29.3, MCHC 31.8 L, RDW Std Deviation 43.9, RDW Coeff of Vashti 13.0, Plt Count 171, MPV 9.1, Immature Gran % (Auto) 0.300, Neut % (Auto) 42.3 L, Lymph % (Auto) 38.1, [place] % (Auto) 12.2 H, Eos % (Auto) 6.8 H, Baso % (Auto) 0.3, Absolute Neuts (auto) 1.4 L, Absolute Lymphs (auto) 1.28, Nucleated RBC % 0 01/25/22 04:13: Sodium 144, Potassium 3.4 L, Chloride 114 H, Carbon Dioxide 24.0, Anion Gap 6, BUN 4 L, Creatinine 0.75, Estim Creat Clear Calc 31.15, Est GFR (MDRD) Af Amer 95, Est GFR (MDRD) Non-Af 78, BUN/Creatinine Ratio 5.3 L, Glucose 88, Calcium 8.4 L, Total Bilirubin 0.20, AST 19, ALT 22, Alkaline Phosphatase 50, Total Protein 5.5 L, Albumin 2.7 L, Globulin 2.8, Albumin/Globulin Ratio 1.0 Micro: Microbiology 01/23/22 11:45 Stool Enteric Bacteriology - Final 01/23/22 11:45 Stool C. difficile DNA Amplification - Final 01/23/22 10:24 Nasal Secretion SARS-CoV-2 Antigen (Rapid) - Final Physical Exam Const alert and no apparent distress Constitutional Narrative: Oriented HEENT normocephalic and head/scalp atraumatic Eyes Eyes Narrative: EOM grossly intact, anicteric Neck supple Resp normal respiratory effort and clear to auscultation bilaterally Cardio regular rate and regular rhythm GI soft to palpation GI Narrative: No rebound, guarding, rigidity, tenderness mild at time of exam, + bowel sounds Extremity Extremity Narrative: No edema appreciated Neuro moves all extremities Neuro Narrative: No overt focal deficits appreciated Psych Psych Narrative: Cooperative Assessment & Plan Assessment/Plan (1) Enteritis: (2) Pancreatitis: PLAN: Plan 1. Acute enteritis ? Possibly viral patient has been admitted to regular nursing floor managed symptomatically with IV fluids antinausea medication as well as pain meds Started on cipro anx start date 01/23 Is improving with current management but continues to have very frequent watery BMs with minimal PO tolerance at this time Continue to require inpt management for IVF, currently at 150/hr Cdiff and stool specimen negative Covid negative 01/25: Continues to have significant diarrhea, slightly improved but slowly. Additionally nausea, supportive care at this time 2. Acute pancreatitis ? Epigrastric tenderness +lipase of [address] suggestive of enteritis and not pancreatitis but given 2/3 + pt meets criteria LFTs wnl, tenderness improving Lipase did go to 145 Advance diet as tolerated Continue IVF and monitoring 3. Dementia Per history On donepezil HR 55, between 50's and 60's No symptoms of low HR identified If HR goes lower can consider d/c of donepezil 4. Mild intermittent asthma ? Currently not in exacerbation aerosol treatment as needed 5. DVT prophylaxis ? SC Delmis Fong MD Charges/Coding Visit Charges Inpatient E&M: 45839 Subs Hosp L2
[2022-01-25 20:30] VITALS: BP 126/70; PULSE 67; RESP 18; TEMP 36.9; O2SAT 98
[2022-01-25] MEDS: Donepezil HCl 10 MG Tablet PO (21:41)
[2022-01-26 03:03] VITALS: BP 116/61; PULSE 51; RESP 16; TEMP 36.6; O2SAT 95
[2022-01-26] MEDS: Menthol/Lanolin/Calamine/Znox 113 GM Tube 1 APPLIC TOPICAL ×5 (03:05→21:22)
[2022-01-26 06:16] LABS: Absolute Lymphocyte Count 1.47 X10^3/uL (0.83-4.51); Absolute Neutrophil Count 1.7 X10^3/uL (2.0-7.7); Basophil# 0.01 X10^3/uL; Basophil% 0.3 % (0-1); Eosinophil# 0.27 X10^3/uL; Eosinophils% 7.1 % (0-5); Hematocrit 40.6 % (37-47); Hemoglobin 13.1 g/dL (12.0-15.0); Lymphocyte # 1.47 X10^3/ul (0.83-4.51); Lymphocyte % 38.6 % (19-41); Mean Corp Hgb Conc 32.3 g/dL (32-36); Mean Corpuscular Hgb 29.6 pg (27.0-32.0); Mean Corpuscular Volume 91.9 fL (81-99); Mean Platelet Vol. 9.5 fl (6.2-12.0); Monocyte# 0.37 X10^3/uL; Monocyte% 9.7 % (0-10); NRBC Flagged by Analyzer 0 % (0-5); Neutrophil # 1.69 X10^3/uL (2.7-7.7); Neutrophil % 44.3 % (47-70); Platelet Count 186 K/mm3 (150-450); Red Blood Count 4.42 M/mm3 (4.2-5.4); White Blood Count 3.8 K/mm3 (4.4-11.0)
[2022-01-26 06:44] LABS: ALB/GLOB Ratio 0.9 RATIO (0.9-2.4); AST(SGOT) 18 U/L (15-37); Alanine Aminotransfer ALT/SGPT 22 U/L (13-56); Albumin, Serum 2.7 g/dL (3.2-5.0); Alkaline Phosphatase 53 U/L (45-117); Anion Gap 6 (5-15); BUN 6 mg/dL (7-18); BUN/Creat Ratio 6.9 RATIO (10-20); Calcium,Total 8.4 mg/dL (8.5-10.1); Chloride 113 mmol/L (98-107); Creatinine, Serum 0.88 mg/dL (0.55-1.02); EST Glomerular Filtration Rate 66 mL/min (>60); Est Glom Filt Rate - Afr Amer 80 mL/min (>60); Globulin 3.1 g/dL (2.2-4.2); Glucose 81 mg/dL (74-106); Magnesium 1.7 mg/dL (1.6-2.6); Potassium 3.9 mmol/L (3.5-5.1); Protein, Total 5.8 g/dL (6.4-8.2); Sodium Level 143 mmol/L (136-145)
--- NOTE | 2022-01-26 06:56 | PN.HOSP_ITS ---
Subjective Subjective DOS 01/26/22 CC continued diarrhea Pt reports she is slowly feeling better but multiple BMs overnight and still hav ing them every 2-3 hours though duration slightly longer and consistency slightly thickening. Tolerated liquids yesterday without significant nausea. Willing to advance diet. No chest pain or SOB. Abdominal pain still improved, unchanged from yesterday. Objective Data Objective Data Vital Signs: Vital Signs Temp Pulse Resp BP Pulse Ox O2 Del Method 98 F 51 L 16 116/61 95 Room Air 01/26/22 03:03 01/26/22 03:03 01/26/22 03:03 01/26/22 03:03 01/26/22 03:03 01/26/22 03:03 Oxygen Delivery Method Room Air Weight: 55.5 kg Body Mass Index (BMI) 23.8 Intake & Output: Intake and Output for Last 24 Hours 01/24/22 01/25/22 01/26/22 23:59 23:59 23:59 Intake Total 3650 / 3650 850 / 850 200 / 200 Output Total 1700 / 1700 700 / 700 Balance 1950 / 1950 150 / 150 200 / 200 Lab / Micro Data Result Diagrams: 01/26/22 05:09 01/26/22 05:09 Labs: Laboratory Results - last 24 hr 01/26/22 05:09: WBC 3.8 L, RBC 4.42, Hgb 13.1, Hct 40.6, MCV 91.9, MCH 29.6, MCHC 32.3, RDW Std Deviation 44.0 H, RDW Coeff of [place]hti 13.0, Plt Count 186, MPV 9.5, Immature Gran % (Auto) 0.000, Neut % (Auto) 44.3 L, Lymph % (Auto) 38.6, [place] % (Auto) 9.7, Eos % (Auto) 7.1 H, Baso % (Auto) 0.3, Absolute Neuts (auto) 1.7 L, Absolute Lymphs (auto) 1.47, Nucleated RBC % 0 01/26/22 05:09: Sodium 143, Potassium 3.9, Chloride 113 H, Carbon Dioxide 24.0, Anion Gap 6, BUN 6 L, Creatinine 0.88, Estim Creat Clear Calc 35.40, Est GFR (MDRD) Af Amer 80, Est GFR (MDRD) Non-Af 66, BUN/Creatinine Ratio 6.9 L, Glucose 81, Calcium 8.4 L, Magnesium 1.7, Total Bilirubin 0.20, AST 18, ALT 22, Alkaline Phosphatase 53, Total Protein 5.8 L, Albumin 2.7 L, Globulin 3.1, Albumin/Globulin Ratio 0.9 Micro: Microbiology 01/23/22 11:45 Stool Enteric Bacteriology - Final 01/23/22 11:45 Stool C. difficile DNA Amplification - Final 01/23/22 10:24 Nasal Secretion SARS-CoV-2 Antigen (Rapid) - Final Physical Exam Const alert and no apparent distress Constitutional Narrative: Oriented HEENT normocephalic and head/scalp atraumatic Eyes Eyes Narrative: EOM grossly intact, anicteric Neck supple Resp normal respiratory effort and clear to auscultation bilaterally Cardio regular rate and regular rhythm GI soft to palpation GI Narrative: No rebound, guarding, rigidity, tenderness mild at time of exam, + bowel sounds Extremity Extremity Narrative: No edema appreciated Neuro moves all extremities Neuro Narrative: No overt focal deficits appreciated Psych Psych Narrative: Cooperative Assessment & Plan Assessment/Plan (1) Enteritis: (2) Pancreatitis: PLAN: Plan 1. Acute enteritis ? Likely viral patient has been admitted to regular nursing floor managed symptomatically with IV fluids antinausea medication as well as pain meds Started on cipro anx start date 01/23 Is improving with current management but continues to have very frequent watery BMs with minimal PO tolerance at this time Continue to require inpt management for IV and poor PO intake Cdiff and stool specimen negative Covid negative 01/25: Continues to have significant diarrhea, slightly improved but slowly. Additionally nausea, supportive care at this time 01/26: Will advance diet, still has significant GI losses, will replace and continue supportive care. Is improving slowly 2. Acute pancreatitis ? Epigrastric tenderness +lipase of [address] suggestive of enteritis and not pancreatitis but given 2/3 + pt meets criter ia LFTs wnl, tenderness improving Lipase did go to 145 Advance diet as tolerated Continue IVF and monitoring, abd pain almost resolved 3. Dementia Per history On donepezil HR 55, between 50's and 60's- will hold donepezil given low HR and diarrhea 4. Mild intermittent asthma ? Currently not in exacerbation aerosol treatment as needed 5. DVT prophylaxis ? SC Lovenox Suha Fong MD Charges/Coding Visit Charges Inpatient E&M: 21273 Subs Hosp L2
[2022-01-26 08:28] VITALS: BP 151/70; PULSE 60; RESP 18; TEMP 36.9; O2SAT 99
[2022-01-26] MEDS: Ceftriaxone 1 GM/50 ML BAG IV (10:21)
[2022-01-26] MEDS: Enoxaparin 40 MG/0.4 ML Syringe SC (10:21)
[2022-01-26] MEDS: Escitalopram Oxalate 10 MG Tablet 5 MG PO (10:22)
[2022-01-26] MEDS: Ensure Clear 120 ML Liquid PO ×4 (10:28→21:24)
--- NOTE | 2022-01-26 12:03 | NURSING ---
attempted to give update to and son as requested, vm left with phone number to call.
[2022-01-26 14:38] VITALS: BP 142/85; PULSE 53; RESP 18; TEMP 36.6; O2SAT 100
[2022-01-26 20:46] VITALS: BP 119/68; PULSE 55; RESP 18; TEMP 37; O2SAT 96
[2022-01-27 03:04] VITALS: BP 149/78; PULSE 54; RESP 18; TEMP 36.4; O2SAT 95
[2022-01-27 06:15] LABS: Absolute Neutrophil Count 1.9 X10^3/uL (2.0-7.7); Basophil# 0.01 X10^3/uL; Basophil% 0.2 % (0-1); Eosinophil# 0.25 X10^3/uL; Eosinophils% 6.1 % (0-5); Hematocrit 41.6 % (37-47); Hemoglobin 13.6 g/dL (12.0-15.0); Lymphocyte % 39.3 % (19-41); Mean Corp Hgb Conc 32.7 g/dL (32-36); Mean Corpuscular Hgb 29.8 pg (27.0-32.0); Mean Corpuscular Volume 91.2 fL (81-99); Mean Platelet Vol. 9.5 fl (6.2-12.0); Monocyte# 0.32 X10^3/uL; Monocyte% 7.9 % (0-10); NRBC Flagged by Analyzer 0 % (0-5); Neutrophil # 1.88 X10^3/uL (2.7-7.7); Neutrophil % 46.3 % (47-70); Platelet Count 194 K/mm3 (150-450); RBC Distribution Width CV 13.1 % (11.6-14.6); RBC Distribution Width SD 43.9 fl (35.1-43.9); Red Blood Count 4.56 M/mm3 (4.2-5.4); White Blood Count 4.1 K/mm3 (4.4-11.0)
[2022-01-27 06:59] LABS: AST(SGOT) 18 U/L (15-37); Alanine Aminotransfer ALT/SGPT 23 U/L (13-56); Alkaline Phosphatase 53 U/L (45-117); Anion Gap 6 (5-15); BUN 13 mg/dL (7-18); BUN/Creat Ratio 14.5 RATIO (10-20); Calcium,Total 8.6 mg/dL (8.5-10.1); Chloride 112 mmol/L (98-107); EST Glomerular Filtration Rate 64 mL/min (>60); Est Glom Filt Rate - Afr Amer 77 mL/min (>60); Estimated Creatinine Clearance 34.62 ml/min; Globulin 3.1 g/dL (2.2-4.2); Glucose 86 mg/dL (74-106); Magnesium 2.1 mg/dL (1.6-2.6); Potassium 3.9 mmol/L (3.5-5.1); Protein, Total 6.1 g/dL (6.4-8.2); Sodium Level 142 mmol/L (136-145)
[2022-01-27 07:55] VITALS: O2SAT 95
--- NOTE | 2022-01-27 08:02 | DCINST_ITS ---
Discharge Instructions Diet Discharge Diet: No restrictions Activity Discharge Activity: Return to Normal Activity Follow Up Care Test Results: Test results from this visit will be discussed in further detail at your follow- up appointment, if applicable. Discharge Plan Admission Admit Date/Time: 01/23/22 10:11 Primary Reason for Your Visit: Diarrhea Attending Provider: Suha Fong Primary Care Provider: Kaitlin Kirby Consulting Providers: Esteban Emmanuel Instructions Patient Instructions: ED Diarrhea, Unknown Cause Additional Instructions / Restrictions: 1. You were admitted due to diarrhea and dehydration because of that 2. You were given fluids and antibiotics with improvement in symptoms 3. You will have completed 5 days of antibiotics after your dose of antibiotics today. Given that you did well on this antibiotic, you will be discharged with two more days of Cefixime, begin 01/28. The script was sent to the [facility] on file on . 4. Your donepezil was held due to low heart rate and because it can contribute to diarrhea, please discuss with your primary care physician prior to resuming this. 5. Please call your primary care office upon discharge to schedule hospital follow up within 1 week. 6. Please call 911 or return to the Emergency department for any concerning signs or symptoms. Discharge Orders/Prescriptions Prescriptions: New cefixime 400 mg capsule 400 mg PO DAILY 2 Days Qty: 2 0RF Continued escitalopram oxalate 5 mg tablet 5 mg PO DAILY Label Comments: TAKE 1 TABLET BY MOUTH ONCE DAILY Discontinued donepezil 10 mg tablet 10 mg PO QHS Label Comments: TAKE 1 TABLET BY MOUTH DAILY AT BEDTIME Referrals / Follow Up: Kaitlin Kirby MD [Primary Care Provider] - Disposition Disposition (needs filled in before D/C Order can be placed): Home, Self Care
[2022-01-27 08:56] VITALS: BP 138/70; PULSE 52; RESP 18; TEMP 36.7; O2SAT 97
--- NOTE | 2022-01-27 09:38 | CASEMGMT ---
LEONARDO CM in to pt room, pt sitting up in bed in no distress. Pt denies any homegoing needs. States her and dtr are available to assist. Pt SBA. Pt states she will be at home in her usual surroundings which will be better for all.
[2022-01-27] MEDS: Escitalopram Oxalate 10 MG Tablet 5 MG PO (09:51)
[2022-01-27] MEDS: Menthol/Lanolin/Calamine/Znox 113 GM Tube 1 APPLIC TOPICAL (09:52)
[2022-01-27] MEDS: Enoxaparin 40 MG/0.4 ML Syringe SC (09:52)
[2022-01-27] MEDS: Ceftriaxone 1 GM/50 ML BAG IV (09:55)
[2022-01-27] MEDS: Ensure Clear 120 ML Liquid PO (09:55)
--- NOTE | 2022-01-27 16:19 | DS.PCM_ITS ---
Providers Date of Admission: 01/23/22 Date of Discharge: 01/27/22 Primary Care Physician: Dr. Kaitlin Kirby MD Reason For Visit: ACUTE ENTERITIS, ACUTE PANCREATITIS Diagnosis Discharge Diagnosis (1) Enteritis: Status: Acute Code(s): K52.9 - Noninfective gastroenteritis and colitis, unspecified (2) Pancreatitis: Status: Acute Code(s): K85.90 - Acute pancreatitis without necrosis or infection, unspecified Plan 1. Acute enteritis 2. Dementia Per history 3. Mild intermittent asthma Medications at Discharge Home Medications escitalopram oxalate 5 mg tablet 5 mg PO DAILY mood 01/23/22 cefixime 400 mg capsule 400 mg PO DAILY Start 01/28 2 days #2 caps 01/27/22 Hospital Course Summary of Care Provided Minutes Spent on Discharge: 31 Hospital Course: MARCO JACQUES, is a 81 F who presented to [facility] 01/23/22 with abdominal pain. Sympt oms started in the early hours of the morning of her admission.? Pain was located around the umbilical region.? Patient did describe the pain as being crampy in nature.? She equated her pain being similar to childbirth.? Patient did experience diarrhea as well. She presented to the emergency department due to the persistent nature of her symptoms.? Imaging studies obtained in the ED did show Multiple nondistended fluid-filled small bowel and large bowel loops in all 4 quadrants of the abdomen consistent with a diffuse enteritis.? No perforation, abscess, ileus or obstruction. She was treated with antibiotics and fluids and advanced diet as tolerated. Lipase was elevated and initially concern s for pancreatitis but picture/course was more consistent with enteritis. Pts pain and diarrhea improved and she was tolerating PO and maintaining her hydration. During her admission her donepezil was also held d/t low HR. Weight / BMI Weight Weight: 55.5 kg Body Mass Index (BMI) 23.8 ABG / Lab / Microbiology Data Result Diagrams: 01/27/22 05:10 01/27/22 05:10 Laboratory: Laboratory Results - last 24 hr 01/27/22 05:10: WBC 4.1 L, RBC 4.56, Hgb 13.6, Hct 41.6, MCV 91.2, MCH 29.8, MCHC 32.7, RDW Std Deviation 43.9, RDW Coeff of Vashti 13.1, Plt Count 194, MPV 9.5, Immature Gran % (Auto) 0.200, Neut % (Auto) 46.3 L, Lymph % (Auto) 39.3, [place] % (Auto) 7.9, Eos % (Auto) 6.1 H, Baso % (Auto) 0.2, Absolute Neuts (auto) 1.9 L, Absolute Lymphs (auto) 1.60, Nucleated RBC % 0 01/27/22 05:10: Sodium 142, Potassium 3.9, Chloride 112 H, Carbon Dioxide 24.0, Anion Gap 6, BUN 13, Creatinine 0.90, Estim Creat Clear Calc 34.62, Est GFR (MDRD) Af Amer 77, Est GFR (MDRD) Non-Af 64, BUN/Creatinine Ratio 14.5, Glucose 86, Calcium 8.6, Magnesium 2.1, Total Bilirubin 0.20, AST 18, ALT 23, Alkaline Phosphatase 53, Total Protein 6.1 L, Albumin 3.0 L, Globulin 3.1, Albumin/Globulin Ratio 1.0 Microbiology: Microbiology 01/23/22 11:45 Stool Enteric Bacteriology - Final 01/23/22 11:45 Stool C. difficile DNA Amplification - Final 01/23/22 10:24 Nasal Secretion SARS-CoV-2 Antigen (Rapid) - Final D/C Instructions Discharge Diet: No restrictions Meaningful Use Info Meaningful Use Diagnoses (Choose all that apply): None applicable Discharge Plan Admission Admit Date/Time: 01/23/22 10:11 Primary Reason for Your Visit: Diarrhea Attending Provider: Suha Fong Primary Care Provider: Kaitlin Kirby Consulting Providers: Esteban Emmanuel Instructions Patient Instructions: ED Diarrhea, Unknown Cause Additional Instructions / Restrictions: 1. You were admitted due to diarrhea and dehydration because of that 2. You were given fluids and antibiotics with improvement in symptoms 3. You will have completed 5 days of antibiotics after your dose of antibiotics today. Given that you did well on this antibiotic, you will be discharged with two more days of Cefixime, begin 01/28. The script was sent to the [facility] on file on . 4. Your donepezil was held due to low heart rate and because it can contribute to diarrhea, please discuss with your primary care physician prior to resuming this. 5. Please call your primary care office upon discharge to schedule hospital follow up within 1 week. 6. Please call 911 or return to the Emergency department for any concerning signs or symptoms. Discharge Orders/Prescriptions Prescriptions: New cefixime 400 mg capsule 400 mg PO DAILY 2 Days Qty: 2 0RF Continued escitalopram oxalate 5 mg tablet 5 mg PO DAILY Label Comments: TAKE 1 TABLET BY MOUTH ONCE DAILY Discontinued donepezil 10 mg tablet 10 mg PO QHS Label Comments: TAKE 1 TABLET BY MOUTH DAILY AT BEDTIME Referrals / Follow Up: Kaitlin Kirby MD [Primary Care Provider] - Disposition Disposition (needs filled in before D/C Order can be placed): Home, Self Care Charges/Coding Visit Charges Inpatient E&M: 99564 Disch Hosp
== END 2022-01-27 11:06 | disposition home or self-care (01) | DRG 391 ==
LOC: ED 10:13 → MS3 10:43
PROVIDERS: Admitting Provider Internal Medicine; Emergency Provider Emergency Medicine; PCP Internal Medicine; Visit Provider Internal Medicine
DX: K52.9 Noninfective gastroenteritis and colitis, unspecified (principal); K85.90 Acute pancreatitis without necrosis or infection, unspecified; F03.90 Unspecified dementia, unspecified severity, without behavioral disturbance, psychotic disturbance, mood disturbance, and anxiety; J45.20 Mild intermittent asthma, uncomplicated; Z66 Do not resuscitate
CPT/HCPCS: 36415; 74177; 80048; 80053; 80076; 81001; 83690; 83735; 85025; 87493; 87506; 87811; 97161; 97166; 99251; 99285; J7030; Q9967; A4216; G0463; J2405

== ENCOUNTER 2024-08-24 12:50 | Observation (INO) | payer MEDICARE, SELFPAY ==
[2024-08-24] VITALS (12 sets, daily range): BP systolic 129–187; BP diastolic 64–84; PULSE 57–86; RESP 13–18; TEMP 36.4–36.6; O2SAT 96–100; BMI 23.6
--- NOTE | 2024-08-24 12:51 | EKG12_ITS ---
Test Reason : STROKE ALERT Blood Pressure : */* mmHG Vent. Rate : 63 BPM Atrial Rate : 63 BPM P-R Int : 128 ms QRS Dur : 80 ms QT Int : 434 ms P-R-T Axes : 30 22 42 degrees QTcB Int : 444 ms Sinus rhythm with Premature atrial complexes Otherwise normal ECG Confirmed by Sonny Zaafr ([id number]), make up editor MINERVA MCKEON ([id number]) on 08/26/2024 9:05:59 AM Referred By: Confirmed By: Sonny Zafar
--- NOTE | 2024-08-24 12:51 | CT_ITS ---
EXAM: CT Head Without Intravenous Contrast CLINICAL INDICATION: NEURO DEFICIT, ACUTE, STROKE SUSPECTED TECHNIQUE: Axial computed tomography images of the head/brain without intravenous contrast. This CT exam was performed using one or more of the following dose reduction techniques: automated exposure control, adjustment of the mA and/or kV according to patient size, and/or use of iterative reconstruction technique. COMPARISON: No relevant prior studies available. FINDINGS: BRAIN AND EXTRA-AXIAL SPACES: Areas of decreased attenuation in the deep cerebral white matter are consistent with small vessel ischemic/degenerative changes. The cerebral and cerebellar sulci are prominent consistent with brain atrophy. No acute intracranial hemorrhage, midline shift or mass effect. If symptoms persist, further evaluation with MRI is recommended. BONES/JOINTS: Unremarkable. No acute fracture. SOFT TISSUES: Unremarkable. SINUSES: Unremarkable as visualized. No acute sinusitis. MASTOID AIR CELLS: Unremarkable as visualized. No mastoid effusion. CT/STROKE Brain/Head without Cont IMPRESSION: 1. Small vessel ischemic/degenerative changes. 2. Generalized brain atrophy. 3. No acute intracranial hemorrhage, midline shift or mass effect. If symptoms persist, further evaluation with MRI is recommended. Reading Location: [id number]
--- NOTE | 2024-08-24 12:52 | CT_ITS ---
PROCEDURE: STROKE CTA HEAD AND NECK W/CON 08/24/2024 REASON FOR EXAM: NEURO DEFICIT, ACUTE, STROKE SUSPECTED TECHNIQUE: CTA imaging of the head and neck from the aortic arch to the skull vertex with out contrast and with intravenous contrast. Multiplanar and multisequence images were obtained. CONTRAST: Omnipaque 350 VOLUME: 100 mL Not Provided Gauge IV One or more dose reduction techniques were used (e.g., Automated exposure control, adjustment of the mA and/or kV according to patient size, use of iterative reconstruction technique). COMPARISON: None FINDINGS: Aortic Arch: Conventional arch branch anatomy. Atherosclerotic calcification of the proximal brachiocephalic arteries, without hemodynamically significant stenosis Brachiocephalic and Subclavians: Mild atherosclerotic calcification without hemodynamically significant stenosis. RIGHT Carotid: Right CCA: Mild calcified and soft plaque. Right ICA: Unremarkable. Maximum stenosis (NASCET): 0 % Right ECA: Unremarkable. LEFT Carotid: Left CCA: Unremarkable. Left ICA: Unremarkable. Maximum stenosis (NASCET): 0 % Left ECA: Unremarkable. Vertebrals: Right vertebral artery dominance.. . RIGHT Vertebral: Atherosclerotic calcification and noncalcified plaque involving mid-distal V2 and proximal V3, without hemodynamically significant stenosis LEFT Vertebral: Minimal atherosclerotic calcification without hemodynamically significant stenosis. Left vertebral artery, terminates in a PICA. Anatomy: [place] anatomy is normal. Aneurysm or avm: No intracranial aneurysms or large vascular malformations are identified. Anterior cerebral arteries: Codominant A1. No hemodynamically significant stenosis. Middle cerebral arteries: Mild atherosclerotic calcification of the bilateral carotid siphons, without hemodynamically significant stenosis. Otherwise, the bilateral MCAs are within normal limits of caliber and perfusion. Basilar artery: Unremarkable. Posterior cerebral arteries: Unremarkable. Other major branches of the posterior circulation: Unremarkable. Major venous structures: Unremarkable. Other findings: Neck: Atrophic left thyroid lobe. Enlarged right thyroid lobe, with multiple low-attenuation nodules. Lungs: Mild bibasilar atelectasis. Bones: Degenerative changes of the cervicothoracic spine. CT/STROKE CTA Head AND Neck W/Con IMPRESSION: Atherosclerotic calcification within the anterior and posterior intracranial ci rculation, without hemodynamically significant stenosis. No evidence of dissection, thrombosis or aneurysm. Reading [facility]
--- NOTE | 2024-08-24 12:52 | ED.VIS.STROK ---
HPI History of Present Illness Chief Complaint: Stroke Alert Informant: patient and EMS Narrative Narrative: 83-year-old female last seen normal 20-30 last night was found altered by family this morning upon waking up and had difficulty speaking with left-sided weakness per EMS, that is a little improved now upon arrival here to the hospital, but they got a prehospital stroke alert based on this. Apparently has dementia but this is far from her baseline which she was at last night. Unknown medication regimen/anticoagulants/antiplatelets at home. PFSH PFSH Medical History Hx of vaginal delivery Depression Anxiety Varicose vein of leg Migraines Dementia Asthma Home Medications ?Medication ?Instructions ?Recorded ?Last Taken ?Type donepezil 10 mg tablet 10 mg PO QHS 08/24/24 08/23/24 History escitalopram oxalate 10 mg tablet 10 mg PO DAILY 08/24/24 08/23/24 History memantine 5 mg tablet 5 mg PO BID 08/24/24 08/23/24 History Allergy/AdvReac Type Severity Reaction Status Date / Time Penicillins Allergy unknown Verified 08/24/24 13:45 Family History (Updated 01/23/22 @ 10:[address] Esteban Emmanuel MD) Mother Diabetes Social History Smoking Status: Never smoker ROS ROS ED Review of Systems ROS Unobtainable: due to mental status EXAM Physical Exam Const Vital Signs: 08/24/24 12:50 08/24/24 13:01 08/24/24 13:04 Temperature 97.6 F L Temperature Source Temporal Pulse Rate 60 Respiratory Rate 18 Blood Pressure 161/84 H Blood Pressure Mean 109 Pulse Ox 96 Oxygen Delivery Method Room Air Room Air 08/24/24 13:10 08/24/24 13:30 08/24/24 14:00 Temperature 97.8 F Temperature Source Axillary Pulse Rate 63 71 72 Respiratory Rate 16 18 15 Blood Pressure 187/84 H 147/64 H 144/81 H Blood Pressure Mean 118 91 102 Pulse Ox 100 98 98 Oxygen Delivery Method Room Air Room Air Positive well nourished and well developed General Appearance ED: well developed and NAD HEENT Reports moist mucous membranes normocephalic and atraumatic Eyes PERRL and EOMs intact bilaterally Neck full ROM and supple Resp normal respiratory effort and clear to auscultation bilaterally Cardio regular rate and regular rhythm GI non-tender and non-distended Auscultation: normoactive bowel sounds Palpation: soft Back/Spine no CVA tenderness Extremity normal to inspection General Extremety ED: Negative for edema, pulses abnormal or tenderness General Extremity: Negative for edema or pulses abnormal Neuro [place] Coma Scale: document GCS findings To Voice Obeys Commands None 10 Sensorium / Orientation: awake and alert Motor Exam: general weakness Skin no rashes or lesions noted and no wounds MDM MDM MDM Narrative Medical decision making narrative: Patient is not a thrombolytic candidate due to timing, as she woke up with symptoms, we did treat her blood pressure accordingly, but on my initial exam she does not have lateralizing deficits with the exception that she is not talking but she is following commands. Certainly metabolic and infectious etiologies are in the differential here, I did discuss with stroke neurology who agree that she is not a thrombolytic candidate and to initiate discussions with them again if CTA shows an LVO. I reviewed the initial plain CT which shows no acute hemorrhage on my interpretation, radiology was in agreement, I did not receive a call from them, but I reviewed the report 1333. Later at [address] angiography results which are negative for anything acute. Therefore stroke alert was de-escalated. Patient is coming more alert and talking a little bit now. Certainly TIA is in the differential. Blood work is normal, except for mild prerenal azotemia, and her urinalysis is negative for infection. Plan is for admission. Discussed with hospitalist. Lab Data Attestation: I reviewed the patient's lab results. Labs: Laboratory Results - last 24 hr 08/24/24 08/24/24 12:54 13:40 WBC 5.4 RBC 4.46 Hgb 13.5 Hct 40.7 MCV 91.3 MCH 30.3 MCHC 33.2 RDW Std Deviation 44.9 H RDW Coeff of Vashti 13.3 Plt Count 207 MPV 9.4 Immature Gran % (Auto) 0.400 Neut % (Auto) 47.4 Lymph % (Auto) 40.7 [place] % (Auto) 7.7 Eos % (Auto) 3.4 Baso % (Auto) 0.4 Absolute Neuts (auto) 2.5 Absolute Lymphs (auto) 2.18 Nucleated RBC % 0 PT 12.7 INR 0.9 APTT 26.1 Sodium 140 Potassium 4.3 Chloride 106 Carbon Dioxide 25.6 Anion Gap 9 BUN 26 H Creatinine 1.05 Estim Creat Clear Calc 31.01 L Est GFR (MDRD) Non-Af 52 L BUN/Creatinine Ratio 24.8 H Glucose 88 Calcium 9.0 Troponin T High Sens 10 Urine Color Yellow Urine Clarity Clear Urine pH 7.0 Ur Specific [place] 1.010 Urine Protein 15 H Urine Glucose (UA) Normal Urine Ketones Negative Urine Occult Blood 10 H Urine Nitrite Negative Urine Bilirubin Negative Urine Urobilinogen Normal Ur Leukocyte Esterase Negative Urine RBC 0 SEEN Urine WBC 0 SEEN Ur Squamous Epith Cells 0 SEEN Urine Bacteria 0 SEEN Urine Mucus 0 SEEN Radiography Diagnostic Testing: Clinical Impression(s) from Imaging Studies Brain CT 08/24/24 12:51 IMPRESSION: 1. Small vessel ischemic/degenerative changes. 2. Generalized brain atrophy. 3. No acute intracranial hemorrhage, midline shift or mass effect. If symptoms persist, further evaluation with MRI is recommended. Reading Location: [facility] Head/Neck CTA 08/24/24 12:52 IMPRESSION: Atherosclerotic calcification within the anterior and posterior intracranial circulation, without hemodynamically significant stenosis. No evidence of dissection, thrombosis or aneurysm. Reading Location: [facility] Rhythm Strip Rhythm Strip: Sinus Rhythm Rate: 60 Ectopy: PAC(s) EKG Initial EKG: Attestation: I personally reviewed and interpreted this EKG as follows: Interpretation: Sinus Rhythm and No Acute Injury Pattern Comments: Nml axis & intervals; nml EKG Management Discussion w/another healthcare provider: Hospitalist and [place] [employer] [place] (stroke neurology) Critical Care Time Critical Care Time: Yes Critical care time (excluding procedures): 30-74 minutes (34 min), Including time spent:, Discussing w/Patient &/or Family/Teleprinter Installer, Discussing w/Consultants, Arranging Admission or Transfer and Performing Direct Patient Care at Bedside Discharge Plan Dx/Rx/DC Orders Clinical Impression: Expressive aphasia, Encephalopathy acute Disposition Disposition: Acute Care [facility] NIHSS NIHSS 1a. Level of Consciousness: 1 - Not alert; Arousable by minor stimuli to obey, answer & respond 1b. LOC Questions: 2 - Answers NEITHER question correctly 1c. LOC Commands: 0 - Performs BOTH tasks correctly 2. Best Gaze: 0 - Normal 3. Visual: 0 - No visual loss 4. Facial Palsy: 0 - Normal symmetrical movements 5a. Left Arm: 2 - Some effort against gravity; 5b. Right Arm: 2 - Some effort against gravity; 6a. Left Le - Some effort against gravity; 6b. Right Le - Some effort against gravity; 7. Limb Ataxia: 0 - Absent 8. Sensory: 0 - Normal; no sensory loss 9. Best Language: 3 - Mute, global aphasia; 10. Dysarthria: 2 - Severe dysarthria; 11. Extinction and Inattention: 0 - No abnormality Total: 16 Stroke Questions Stroke Team Activated: Yes (prehospital) Was Patient considered for Endovascular Intervention?: No (CTA neg) IV Thrombolytic Administered: No (due to timing)
[2024-08-24 13:09] LABS: Absolute Lymphocyte Count 2.18 X10^3/uL (0.83-4.51); Absolute Neutrophil Count 2.5 X10^3/uL (2.0-7.7); Basophil# 0.02 X10^3/uL; Basophil% 0.4 % (0-1); Eosinophil# 0.18 X10^3/uL; Eosinophils% 3.4 % (0-5); Hematocrit 40.7 % (37-47); Hemoglobin 13.5 g/dL (12.0-15.0); Lymphocyte # 2.18 X10^3/ul (0.83-4.51); Lymphocyte % 40.7 % (19-41); Mean Corp Hgb Conc 33.2 g/dL (32-36); Mean Corpuscular Hgb 30.3 pg (27.0-32.0); Mean Corpuscular Volume 91.3 fL (81-99); Mean Platelet Vol. 9.4 fl (6.2-12.0); Monocyte# 0.41 X10^3/uL; Monocyte% 7.7 % (0-10); NRBC Flagged by Analyzer 0 % (0-5); Neutrophil # 2.54 X10^3/uL (2.7-7.7); Neutrophil % 47.4 % (47-70); Platelet Count 207 K/mm3 (150-450); RBC Distribution Width CV 13.3 % (11.6-14.6); RBC Distribution Width SD 44.9 fl (35.1-43.9); Red Blood Count 4.46 M/mm3 (4.2-5.4); White Blood Count 5.4 K/mm3 (4.4-11.0)
[2024-08-24] MEDS: hydrALAZINE 20 MG/ML Vial 10 MG IV (13:15)
[2024-08-24 13:16] LABS: International Normalized Ratio 0.9; Prothrombin Time (Protime)PT. 12.7 SECONDS (11.7-14.9)
[2024-08-24 13:17] LABS: Partial Thromboplast Time 26.1 Seconds (24.1-36.2)
[2024-08-24 13:30] LABS: Anion Gap 9 (5-15); BUN 26 mg/dL (4-19); BUN/Creat Ratio 24.8 RATIO (10-20); Carbon Dioxide 25.6 mmol/L (21.0-32.0); Chloride 106 mmol/L (98-108); Creatinine, Serum 1.05 mg/dL (0.70-1.20); EST Glomerular Filtration Rate 52 (>60); Estimated Creatinine Clearance 31.01 ml/min (50-250); Glucose 88 mg/dL (70-99); Potassium 4.3 mmol/L (3.3-5.1); Sodium Level 140 mmol/L (133-145); Troponin T High Sensitivity 10 ng/L (<=14)
[2024-08-24 13:52] LABS: Bacteria 0 SEEN /hpf (None Seen); Mucous, Urine 0 SEEN /hpf (<or=2+); Red Blood Cells-Urine 0 SEEN /hpf (0-5); Squamous Epithelial Cells - UA 0 SEEN /hpf (5-10); White Blood Cells 0 SEEN /hpf (0-5)
[2024-08-24 13:54] LABS: Color, Urine Yellow (Yellow); Glucose, Dipstick Normal (Normal); Ketone-Dipstick Negative (Negative); Leukocyte Esterase-Dipstick Negative /ul (Negative); Nitrite-Dipstick Negative (Negative); Occult Blood-Urine 10 /ul (Negative); Protein-Dipstick 15 mg/dl (Negative); Urine Bilirubin Dipstick Negative (Negative); Urine Clarity Clear (Clear); Urine Urobilinogen Normal (Normal)
--- NOTE | 2024-08-24 15:43 | PCM.HP.STD ---
HPI - General General Date of Admission: 08/24/24 Date of Service: 08/24/24 Chief Complaint: Difficulty speaking HPI Narrative MARCO JACQUES, is a 83-year-old female with a history of depression and dementia who presented to [facility] ED 08/24/2024 as a stroke alert due to difficulty speaking and left-sided weakness. Patient was her normal last night at 10:30 PM but was found altered by family this morning. EMS called and patient with left-sided weakness and difficulty speaking. Patient moving symmetrically upon arrival to the hospital with speech improving as well. In the ED temperature 97.6 with heart rate of 68, blood pressure 161/84, respiratory rate 18 with pulse ox 96% on room air. BMP with BUN of 26 and creatinine 1.05, CBC with normal white blood cell count of 5.4 and normal hemoglobin at 13.5. Troponin of 10, CT head and CTA head and neck with no acute abnormalities. UA negative. Hospitalist contacted for admission for stroke rule out. Patient evaluated bedside with daughter and present, daughter provided most of the history. Patient was in her usual health at 1030 last night when she went to bed however when she woke up she was weak on her left side and had difficulty getting words out. Daughter noted that she usually is slow to wake up so they were not sure if that was a component or if it could have been a TIA she is now back to her baseline. Patient herself initially would not wake up and answer questions however after discussing with her daughter she eventually opened her eyes and began to occasionally interject but unable to obtain full ROS, does seem that she has back to baseline based on family at bedside. [facility] Medical History Hx of vaginal delivery Depression Anxiety Varicose vein of leg Migraines Dementia Asthma Home Medications ?Medication ?Instructions ?Recorded ?Last Taken ?Type donepezil 10 mg tablet 10 mg PO QHS 08/24/24 08/23/24 History escitalopram oxalate 10 mg tablet 10 mg PO DAILY 08/24/24 08/23/24 History memantine 5 mg tablet 5 mg PO BID 08/24/24 08/23/24 History Allergy/AdvReac Type Severity Reaction Status Date / Time Penicillins Allergy unknown Verified 08/24/24 13:45 Family History (Updated 01/23/22 @ 10:[address] Esteban Emmanuel MD) Mother Diabetes Social History Smoking Status: Never smoker ROS ROS Narrative Unable to obtain secondary mental status, dementia at baseline Vital Signs Vital Signs Vital Signs: 08/24/24 12:50 08/24/24 13:01 08/24/24 13:04 Temperature 97.6 F L Temperature Source Temporal Pulse Rate 60 Respiratory Rate 18 Blood Pressure 161/84 H Blood Pressure Mean 109 Pulse Ox 96 Oxygen Delivery Method Room Air Room Air 08/24/24 13:10 08/24/24 13:30 08/24/24 14:00 Temperature 97.8 F Temperature Source Axillary Pulse Rate 63 71 72 Respiratory Rate 16 18 15 Blood Pressure 187/84 H 147/64 H 144/81 H Blood Pressure Mean 118 91 102 Pulse Ox 100 98 98 Oxygen Delivery Method Room Air Room Air Room Air 08/24/24 14:30 08/24/24 14:50 08/24/24 15:00 Temperature 98 F Temperature Source Pulse Rate 69 74 65 Respiratory Rate 17 18 16 Blood Pressure 139/74 H 146/74 H 135/75 H Blood Pressure Mean 95 98 95 Pulse Ox 98 99 98 Oxygen Delivery Method Room Air Room Air 08/24/24 15:30 Temperature Temperature Source Pulse Rate 68 Respiratory Rate 17 Blood Pressure 130/71 H Blood Pressure Mean 90 Pulse Ox 97 Oxygen Delivery Method Room Air Weight Weight: 54.885 kg Body Mass Index (BMI) 23.6 Physical Exam Narrative General: Alert, no she is at the hospital, able to answer questions after she wanted to wake up and answer, daughter reports if she does not want to talk to she will close her eyes and pretend like she cannot hear you HEENT: Atraumatic, normocephalic Eyes: Anicteric, normal conjunctiva, extraocular movements intact, pupils equal Neck: Supple Respiratory: Clear to auscultation bilaterally, normal respiratory effort Cardiovascular: Regular rate and rhythm GI: Soft, nontender, nondistended Extremities: No pitting edema Musculoskeletal: Patient with symmetric cheesemaker strength in upper extremities able to pull and push and symmetrically, able to lift right lower extremity off the bed against gravity and hold it however has a little bit of weakness in the left lower extremity compared to the right which family reports is chronic Neuro: No overt focal neurological deficits, cranial nerves II through XII intact Skin: Some chronic lower extremity changes Psych: Initially did not wake up and participate exam however towards the end did Results Lab / Micro Data 08/24/24 12:54 08/24/24 12:54 Labs: Laboratory Results - last 24 hr 08/24/24 12:54: WBC 5.4, RBC 4.46, Hgb 13.5, Hct 40.7, MCV 91.3, MCH 30.3, MCHC 33.2, RDW Std Deviation 44.9 H, RDW Coeff of [place] 13.3, Plt Count 207, MPV 9.4, Immature Gran % (Auto) 0.400, Neut % (Auto) 47.4, Lymph % (Auto) 40.7, [place] % (Auto) 7.7, Eos % (Auto) 3.4, Baso % (Auto) 0.4, Absolute Neuts (auto) 2.5, Absolute Lymphs (auto) 2.18, Nucleated RBC % 0, PT 12.7, INR 0.9, APTT 26.1, Sodium 140, Potassium 4.3, Chloride 106, Carbon Dioxide 25.6, Anion Gap 9, BUN 26 H, Creatinine 1.05, Estim Creat Clear Calc 31.01 L, Est GFR (MDRD) Non-Af 52 L, BUN/Creatinine Ratio 24.8 H, Glucose 88, Calcium 9.0, Troponin T High Sens 10 08/24/24 13:40: Urine Color Yellow, Urine Clarity Clear, Urine pH 7.0, Ur Specific [place] 1.010, Urine Protein 15 H, Urine Glucose (UA) Normal, Urine Ketones Negative, Urine Occult Blood 10 H, Urine Nitrite Negative, Urine Bilirubin Negative, Urine Urobilinogen Normal, Ur Leukocyte Esterase Negative, Urine RBC 0 SEEN, Urine WBC 0 SEEN, Ur Squamous Epith Cells 0 SEEN, Urine Bacteria 0 SEEN, Urine Mucus 0 SEEN Rhythm Strip Rhythm Strip: Sinus Rhythm Rate: 60 Ectopy: PAC(s) Imaging Radiology Impression Brain CT 08/24/24 12:51 IMPRESSION: 1. Small vessel ischemic/degenerative changes. 2. Generalized brain atrophy. 3. No acute intracranial hemorrhage, midline shift or mass effect. If symptoms persist, further evaluation with MRI is recommended. Reading Location: [id number] Head/Neck CTA 08/24/24 12:52 IMPRESSION: Atherosclerotic calcification within the anterior and posterior intracranial circulation, without hemodynamically significant stenosis. No evidence of dissection, thrombosis or aneurysm. Reading [facility] Assessment & Plan Assessment/Plan (1) Expressive aphasia: PLAN: Plan # Transient left-sided weakness and difficulty speaking -With last known well 10:30 PM on 08/23/2024, patient back to baseline per family now in the ED -Has some left lower extremity weakness compared to the right but family reports this is chronic -Admit to tele -CT head w/ no acute process -CTA head and neck with no LVO -MRI ordered -NIH q4hr -asa, statin -Echo -PT/OT/Speech eval -Teleneuro consult ordered -Hold BP medications to allow for permissive hypertension for 24 hours unless SBP greater than 220 or DBP greater than 120 or until stroke is ruled out #Dementia -Supportive care -Continue home medications # Remote history of gastric ulcers - Patient reports she has an allergy to aspirin and is not agreeable to taking that at this time, will start statin and Plavix with PPI and await workup and neuroconsultation #DVT ppx: SCDs Suha Fong MD Time spent in the patient's overall evaluation, decision-making process, review of diagnostic data, adjustment of management, discussion with other providers, nursing and ancillary staff involved in patient's care documentation, 56 Minutes Charges/Coding Visit Charges Inpatient E&M: 54781 Init Hosp L2
--- NOTE | 2024-08-24 15:48 | ED.RN ---
After hospitalist in to evaluate pt, this RN notified pt is now awake and back to baseline. Pt now able to sit up in bed, pass swallow screen. Pt now speaking in full sentences, smiles and interacts with this RN. Per daughter pt has episodes bad days where she is less responsive. NIH repeated.
[2024-08-24 15:55] LABS: Troponin T High Sens 2 HR 10 ng/L (<=14)
--- NOTE | 2024-08-24 16:24 | ECHOD_ITS ---
Reason For Study Reason For Study: TIA/CVA Procedure This was a 2D Doppler, Color Flow transthoracic echocardiogram. Exam performed portable in patient room. Left Ventricle Normal LV size. The left ventricular ejection fraction is 65 %. Stage 1 diastolic dysfunction. No regional wall motion abnormalities noted. Right Ventricle Normal RV size. Normal systolic function. Atria Normal left atrium. Normal right atrium. Mitral Valve Normal mitral valve. Tricuspid Valve Normal tricuspid valve. Aortic Valve Trisinus/trileaflet aortic valve. Pulmonic Valve Normal pulmonic valve. Great Vessels Normal aortic root. Pericardium/Pleural No pericardial effusion. MMode/2D Measurements & Calculations LVIDd: 4.7 cm IVSd: 0.83 cm Ao root diam: 3.5 cm LVIDs: 2.6 cm LVPWd: 0.71 cm RVDd: 2.9 cm FS: 44.9 % LAV(MOD-bp): 33.0 ml LVAd ap4: 20.2 cm2 SV(MOD-sp4): 32.0 ml LAV(MOD-bp) Indexed: 21.9 ml/m2 LVLd ap4: 6.4 cm SI(MOD-sp4): 21.3 ml/m2 LAV(MOD-sp2): 25.7 ml EDV(MOD-sp4): 51.5 ml LAV(MOD-sp4): 29.6 ml EDV(sp4-el): 54.1 ml LVAs ap4: 10.8 cm2 LVLs ap4: 5.2 cm ESV(MOD-sp4): 19.5 ml ESV(sp4-el): 19.1 ml EF(MOD-sp4): 62.2 % EF(sp4-el): 64.6 % SV(sp4-el): 35.0 ml LA A4 area: 14.5 cm2 LA dimension(2D): 3.0 cm RA A4 area: 12.7 cm2 TAPSE: 2.3 cm Time Measurements MV dec time: 0.22 sec Doppler Measurements & Calculations MV E max avel: 71.2 cm/sec Lat Peak E' Avel: 8.8 cm/sec Med Peak E' Avel: 8.0 cm/sec MV A max avel: 95.0 cm/sec E/E' lat: 8.1 E/E' med: 8.9 MV E/A: 0.75 MV V2 max: 118.9 cm/sec MV P1/2t max avel: 89.8 cm/sec Ao V2 max: 115.3 cm/sec MV max P.7 mmHg MV P1/2t: 89.8 msec Ao max P.3 mmHg MV V2 mean: 55.8 cm/sec Ao V2 mean: 79.0 cm/sec MV mean P.5 mmHg MV dec slope: 293.0 cm/sec2 Ao mean P.9 mmHg MV V2 VTI: 37.2 cm MVA(P1/2t): 2.5 cm2 Ao V2 VTI: 30.6 cm AV (velocity ratio): 0.85 LV V1 max: 93.4 cm/sec PA V2 max: 67.0 cm/sec LV V1 max P.5 mmHg LV V1 mean P.8 mmHg LV V1 mean: 61.8 cm/sec LV V1 VTI: 26.1 cm ECHO/Echo Complete Interpretation Summary Normal LV size. The left ventricular ejection fraction is 65 %. Stage 1 diastolic dysfunction. Structurally normal valves. Ordering Physician: Pablo Dobson Performed By: Nick Rene RCS
[2024-08-24] MEDS: 0.9% Saline Lock 10 ML Syringe IV (16:49)
[2024-08-24] MEDS: 0.9% Normal Saline (1000mL) 1,000 ML 50 ML IV (16:49)
[2024-08-24] MEDS: Memantine Hydrochloride 5 MG Tablet PO (17:34)
[2024-08-24] MEDS: Clopidogrel Bisulfate 75 MG Tablet PO (17:35)
[2024-08-24 18:42] LABS: Troponin T High Sens 4 HR 12 ng/L (<=14)
--- NOTE | 2024-08-24 19:00 | CASEMGMT ---
Care Management Face to Face with patient for initial transition planning/care coordination assessment in the ED.? This freelance copywriter introduced self and role at [facility]. Patient alert and oriented. Patient willing to participate in assessment and is able to answer all questions appropriately.? Care providers, pharmacy, and demographics verified. Patient?s daughter Toya and Toya?s Master (patient?s son-in-law/ JD) ?were also present and assisted with assessment when needed. Admitting Diagnosis: Expressive aphasia. Other diagnosis history: Including but not limited to: Varicose Vein of leg, Migraines and Asthma. PCP: Per medical record review; Dr. Kirby; per patient and patient?s daughter: Dr. Bryant. Patient?s daughter stated patient hasn?t seen her PCP in roughly 3 years as patient see?s her neurologist once every 6 months who is stated to see overall care. Specialists: Neurologist: Dr. Margarita Albarran. Preferred Pharmacy: [facility] Insurance: Yes; Medicare; [place] Prescription Benefit: Yes Living Will/HPOA: ?Yes; POA in electronic medical records. POA is patient?s daughter, Toya Etienne LNOK: Patient?s , Ed. Patient also has a daughter, Toya and a son Jaime. Jaime resides in [place]. Living Arrangements: Patient resides in a 2-story home with her . Both patient and patient?s have been diagnosed with dementia; patient?s ?s is more progressive and advanced at this time. There are 2 steps leading in/out of the house with a handrail to hold onto and 13-14 steps leading to patient?s bedroom which is located on the 2nd floor. There are hand-rails also leading from the 1st to the 2nd floor.? Patient stated she is normally able to navigate the steps without difficulty. Patient denied any current environmental barriers. Transportation: Patient?s still drives however is in the process of getting evaluated by his own doctor who will then make recommendations as to whether or not this is safe for patient?s to do. burlap worker provided education as well as potential safety concerns regarding transportation. ?Patient and patient?s family stated patient?s only drives during the day, and only drives to the places where he knows he is going. DME: HHS, shower chair, walking stick, and grab bar in shower. HHC: Denied any history of. SNF/Rehab: Denied. Community Resources: Meals on Wheels: 5 home delivered meals per week. Behavioral Health History: ?Dementia, depression and anxiety. Patient goals: Patient is currently undecided about where she would like to discharge to.? Patient stated her is ?cruel? and yells at her, breaks things in the house, moves things around in the house to where he wants him to be, tears things up, and acts like ?a bad kid?.? Patient stated at times, she doesn?t feel like she can take it anymore. Patient?s daughter and JD reported they have a very large house which includes a first-floor bedroom and bathroom that patient can move into if patient wants to.? Patient stated she does not want to burden anyone but will consider it and may stay there for a weekend to give it a try. Patient?s daughter stated she has a lot of cats that patient would also enjoy being around. Patient?s JD reported he got patient?s dinner and dropped him back home where he remains alone.? Patient?s daughter reported patient?s stays home alone frequently, has never left the house and gotten lost, or wandered, and has a strict OCD-like routine and structure where he does the same thing every night like clock-work that provides an extra security-measure that he has not swayed from.? Patient?s daughter reported her father has convinced himself he cannot eat, is 5?10 or 5?11 and is down to 127 pounds.? Toya stated her father will wrap up unfinished lunch meat and hide it somewhere at room temperature and then eat it later ?as well as other food that may be old, resulting in an upset stomach.? Plan: burlap worker will call and request a welfare check (patient?s hard of hearing, normally removes hearing aids when home and may not answer the door), patient?s daughter will also call and check on her father this evening as well and will also check on him tomorrow. burlap worker will make an APS referral for both patient as well as patient?s . It should be noted that patient was very talkative, presented with good memory and required very minimal assistance with providing history. Disposition Plan: admission to acute; RN CM/SW to follow for discharge planning needs that may arise. Malorie Foley, STERILE PRODUCTS PROCESSOR, [employer] ASSISTANT MANAGER
[2024-08-24] MEDS: Atorvastatin Calcium 40 MG Tablet PO (20:31)
[2024-08-24] MEDS: Escitalopram Oxalate 10 MG Tablet PO (20:31)
[2024-08-24] MEDS: Donepezil HCl 10 MG Tablet PO (20:32)
--- NOTE | 2024-08-24 20:37 | CASEMGMT ---
Social Work: Corrugator Machine Operator made phone contact with [facility] dispatch and spoke with #[phone] and requested a welfare check on patient's . Officer stated he will send a deputy out to the home. Malorie Foley, VB NET PROGRAMMER, ELECTRICIAN RECTIFIER MAINTENANCE
--- NOTE | 2024-08-24 20:53 | CM.ED ---
Social Work: adz worker made a referral to APS for herself as well as for patient's . Please refer to completed assessment for details. Malorie Foley, SUPPORT DIRECTOR, UTILIZATION MANAGEMENT RN
[2024-08-25] VITALS (7 sets, daily range): BP systolic 122–154; BP diastolic 67–76; PULSE 58–62; RESP 16–17; TEMP 36.4–37; O2SAT 95–98; BMI 23.6
[2024-08-25 05:15] LABS: Absolute Lymphocyte Count 1.68 X10^3/uL (0.83-4.51); Absolute Neutrophil Count 3.3 X10^3/uL (2.0-7.7); Basophil# 0.03 X10^3/uL; Basophil% 0.5 % (0-1); Eosinophil# 0.18 X10^3/uL; Eosinophils% 3.2 % (0-5); Hematocrit 38.7 % (37-47); Lymphocyte # 1.68 X10^3/ul (0.83-4.51); Lymphocyte % 29.6 % (19-41); Mean Corp Hgb Conc 33.6 g/dL (32-36); Mean Corpuscular Hgb 30.5 pg (27.0-32.0); Mean Corpuscular Volume 90.8 fL (81-99); Mean Platelet Vol. 9.7 fl (6.2-12.0); Monocyte# 0.51 X10^3/uL; NRBC Flagged by Analyzer 0 % (0-5); Neutrophil # 3.26 X10^3/uL (2.7-7.7); Neutrophil % 57.5 % (47-70); Platelet Count 199 K/mm3 (150-450); RBC Distribution Width CV 13.5 % (11.6-14.6); RBC Distribution Width SD 45.2 fl (35.1-43.9); Red Blood Count 4.26 M/mm3 (4.2-5.4); White Blood Count 5.7 K/mm3 (4.4-11.0)
[2024-08-25 05:48] LABS: Anion Gap 10 (5-15); BUN 20 mg/dL (4-19); BUN/Creat Ratio 21.5 RATIO (10-20); Calcium,Total 8.9 mg/dL (7.6-11.0); Carbon Dioxide 24.9 mmol/L (21.0-32.0); Chloride 107 mmol/L (98-108); Cholesterol 201 mg/dL (<=200); Creatinine, Serum 0.91 mg/dL (0.70-1.20); EST Glomerular Filtration Rate 62 (>60); Estimated Creatinine Clearance 35.78 ml/min (50-250); Glucose 81 mg/dL (70-99); High Density Lipoprotein 66 mg/dL; Low Density Lipoprotein Calc. 120 mg/dL; Potassium 3.8 mmol/L (3.3-5.1); Sodium Level 141 mmol/L (133-145); Triglycerides 74 mg/dL; Very Low Density Lipoprotein 15 mg/dL (5-40); cholesterol:hdl ratio screen 3.03
[2024-08-25 06:08] LABS: Hemoglobin A1c 5.6 % (<=5.6)
[2024-08-25] MEDS: Clopidogrel Bisulfate 75 MG Tablet PO (08:52)
[2024-08-25] MEDS: Memantine Hydrochloride 5 MG Tablet PO ×2 (08:52→21:28)
[2024-08-25] MEDS: Pantoprazole Sodium 40 MG Tablet PO (08:52)
--- NOTE | 2024-08-25 09:23 | STROKE.CONS ---
Assessment and Plan: Stroke Assessment/Plan 83 yo RH F w a PMH of depression and dementia who presents with L sided weakness and difficulty speaking. LKW was on 08/23 at 10:30. At baseline has cognitive issues but no focal weakness. EMS was called in the morning as was not able to form words and had L sided weakness. Brought to ED for evaluation. Stroke alert called. CTH/CTA were unremarkable. Speech and weakness improved upon arrival. Still feels that she is slow to think and is more confused. No lytics given. Admitted for evaluation for stroke/TIA. Started on DAPT for TIA. Has had a history of GI bleeding when on ASA. #transient L sided weakness and word finding difficulty. Currently back to normal except the patient feels more confused. Ddx includes TIA vs toxic-metabolic encephalopathy. Seizure is less likely. -obtain brain MRI to evaluate for evidence of ischemia -recommend toxic metabolic encephalopathy work up: cbc, cmp, b12, tsh, folate, NH4. Give thiamine supplementation. Work up for systemic infection: UA, CXR, blood cx. Ensure adequate hydration. -Would not do DAPT due to prior episodes of GI bleeding. Can continue ASA 81 daily for now but patient is hesistant due to prior history of GI bleeding. If MRI shows evidence of ischemia or if no other cause found and TIA presumably the cause, then would need to discuss risks/benefits of bleeding from ASA with family prior to discharge -continue statin -goal LDL <70, goal HbA1c <7, goal BP 120/80 -obtain TTE, cardiac telemetry. -CTA shows no signficant stenosis or LVO HPI Consult Data Date of Consult: 08/25/24 HPI Narrative HPI Narrative: MARCO JACQUES, is a 83 F who presents [facility] Medical History Hx of vaginal delivery Depression Anxiety Varicose vein of leg Migraines Dementia Asthma Home Medications ?Medication ?Instructions ?Recorded ?Last Taken ?Type donepezil 10 mg tablet 10 mg PO QHS 08/24/24 08/23/24 History escitalopram oxalate 10 mg tablet 10 mg PO DAILY 08/24/24 08/23/24 History memantine 5 mg tablet 5 mg PO BID 08/24/24 08/23/24 History Allergy/AdvReac Type Severity Reaction Status Date / Time Penicillins Allergy unknown Verified 08/24/24 13:45 Family History (Updated 01/23/22 @ 10:[address] Esteban Emmanuel MD) Mother Diabetes Social History Smoking Status: Never smoker Vital Signs Vital Signs Vital Signs: 08/24/24 12:50 08/24/24 13:01 08/24/24 13:04 Temperature 97.6 F L Temperature Source Temporal Pulse Rate 60 Respiratory Rate 18 Respiratory Effort Respiratory Depth Respiratory Pattern Blood Pressure 161/84 H Blood Pressure Mean 109 Blood Pressure Source Blood Pressure Position Blood Pressure Location Pulse Ox 96 Oxygen Delivery Method Room Air Room Air 08/24/24 13:10 08/24/24 13:30 08/24/24 14:00 Temperature 97.8 F Temperature Source Axillary Pulse Rate 63 71 72 Respiratory Rate 16 18 15 Respiratory Effort Respiratory Depth Respiratory Pattern Blood Pressure 187/84 H 147/64 H 144/81 H Blood Pressure Mean 118 91 102 Blood Pressure Source Blood Pressure Position Blood Pressure Location Pulse Ox 100 98 98 Oxygen Delivery Method Room Air Room Air Room Air 08/24/24 14:30 08/24/24 14:50 08/24/24 15:00 Temperature 98 F Temperature Source Pulse Rate 69 74 65 Respiratory Rate 17 18 16 Respiratory Effort Respiratory Depth Respiratory Pattern Blood Pressure 139/74 H 146/74 H 135/75 H Blood Pressure Mean 95 98 95 Blood Pressure Source Blood Pressure Position Blood Pressure Location Pulse Ox 98 99 98 Oxygen Delivery Method Room Air Room Air 08/24/24 15:30 08/24/24 15:46 08/24/24 16:18 Temperature 97.9 F Temperature Source Temporal Pulse Rate 68 70 86 Respiratory Rate 17 13 14 Respiratory Effort Respiratory Depth Respiratory Pattern Blood Pressure 130/71 H 129/78 H 143/79 H Blood Pressure Mean 90 95 100 Blood Pressure Source Monitor Blood Pressure Position Supine Blood Pressure Location Left Arm Pulse Ox 97 99 98 Oxygen Delivery Method Room Air Room Air Room Air 08/24/24 16:18 08/24/24 20:00 08/24/24 20:47 Temperature 97.9 F 97.9 F Temperature Source Temporal Temporal Pulse Rate 86 57 L Respiratory Rate 14 17 Respiratory Effort Normal Non-Labored Respiratory Depth Normal Respiratory Pattern Normal Blood Pressure 143/79 H 131/75 H Blood Pressure Mean 100 93 Blood Pressure Source Monitor Monitor Blood Pressure Position Semi-Fowlers Semi-Fowlers Blood Pressure Location Left Arm Left Arm Pulse Ox 98 97 Oxygen Delivery Method Room Air Room Air Room Air 08/25/24 00:00 08/25/24 00:30 08/25/24 04:00 Temperature 97.5 F L 97.5 F L Temperature Source Temporal Temporal Pulse Rate 62 60 Respiratory Rate 17 16 Respiratory Effort Normal Non-Labored Respiratory Depth Normal Respiratory Pattern Normal Blood Pressure 143/76 H 136/76 H Blood Pressure Mean 98 96 Blood Pressure Source Monitor Monitor Blood Pressure Position Semi-Fowlers Semi-Fowlers Blood Pressure Location Left Arm Right Arm Pulse Ox 98 95 Oxygen Delivery Method Room Air Room Air Room Air 08/25/24 08:00 08/25/24 08:56 Temperature 98.6 F Temperature Source Oral Pulse Rate 58 L Respiratory Rate 16 Respiratory Effort Normal Respiratory Depth Respiratory Pattern Blood Pressure 154/76 H Blood Pressure Mean 102 Blood Pressure Source Monitor Blood Pressure Position Semi-Fowlers Blood Pressure Location Right Arm Pulse Ox 96 Oxygen Delivery Method Room Air Room Air Weight Weight: 54.885 kg Body Mass Index (BMI) 23.6 EEG Results Procedure Details EEG Procedure Details: MARCO JACQUES is a 83 year old F with a past medical history of , who presents for evaluation of Electroencephalogram on DATE at TIME Physical Exam Narrative MS: awake, alert, oriented x 1, bradyphrenic, no aphasia, no neglect, no dysarthria CN: VFF, EOMI, no facial droop, nml facial sensation M: antigravity in all extremities without drift S:: nml to LT in all ext C: no appendicular dysmetria Lab / Micro Data 08/25/24 04:13 08/25/24 04:13 Labs: Laboratory Results - last 24 hr 08/24/24 12:54: WBC 5.4, RBC 4.46, Hgb 13.5, Hct 40.7, MCV 91.3, MCH 30.3, MCHC 33.2, RDW Std Deviation 44.9 H, RDW Coeff of Vashti 13.3, Plt Count 207, MPV 9.4, Immature Gran % (Auto) 0.400, Neut % (Auto) 47.4, Lymph % (Auto) 40.7, [place] % (Auto) 7.7, Eos % (Auto) 3.4, Baso % (Auto) 0.4, Absolute Neuts (auto) 2.5, Absolute Lymphs (auto) 2.18, Nucleated RBC % 0, PT 12.7, INR 0.9, APTT 26.1, Sodium 140, Potassium 4.3, Chloride 106, Carbon Dioxide 25.6, Anion Gap 9, BUN 26 H, Creatinine 1.05, Estim Creat Clear Calc 31.01 L, Est GFR (MDRD) Non-Af 52 L, BUN/Creatinine Ratio 24.8 H, Glucose 88, Calcium 9.0, Troponin T High Sens 10 08/24/24 13:40: Urine Color Yellow, Urine Clarity Clear, Urine pH 7.0, Ur Specific [place] 1.010, Urine Protein 15 H, Urine Glucose (UA) Normal, Urine Ketones Negative, Urine Occult Blood 10 H, Urine Nitrite Negative, Urine Bilirubin Negative, Urine Urobilinogen Normal, Ur Leukocyte Esterase Negative, Urine RBC 0 SEEN, Urine WBC 0 SEEN, Ur Squamous Epith Cells 0 SEEN, Urine Bacteria 0 SEEN, Urine Mucus 0 SEEN 08/24/24 15:00: Troponin T Hi Sens 2 Hr 10 08/24/24 17:25: Troponin T Hi Sens 4Hr 12 08/25/24 04:13: WBC 5.7, RBC 4.26, Hgb 13.0, Hct 38.7, MCV 90.8, MCH 30.5, MCHC 33.6, RDW Std Deviation 45.2 H, RDW Coeff of [place] 13.5, Plt Count 199, MPV 9.7, Immature Gran % (Auto) 0.200, Neut % (Auto) 57.5, Lymph % (Auto) 29.6, [place] % (Auto) 9.0, Eos % (Auto) 3.2, Baso % (Auto) 0.5, Absolute Neuts (auto) 3.3, Absolute Lymphs (auto) 1.68, Nucleated RBC % 0, Sodium 141, Potassium 3.8, Chloride 107, Carbon Dioxide 24.9, Anion Gap 10, BUN 20 H, Creatinine 0.91, Estim Creat Clear Calc 35.78 L, Est GFR (MDRD) Non-Af 62, BUN/Creatinine Ratio 21.5 H, Glucose 81, Hemoglobin A1c 5.6, Calcium 8.9, Triglycerides 74, Cholesterol 201, LDL Cholesterol, Calc 120, VLDL Cholesterol 15, HDL Cholesterol 66, Cholesterol/HDL Ratio 3.03, TSH 2.470 Rhythm Strip Rhythm Strip: Sinus Rhythm Rate: 60 Ectopy: PAC(s) Imaging Radiology Impression Brain CT 08/24/24 12:51 IMPRESSION: 1. Small vessel ischemic/degenerative changes. 2. Generalized brain atrophy. 3. No acute intracranial hemorrhage, midline shift or mass effect. If symptoms persist, further evaluation with MRI is recommended. Reading Location: [facility] Head/Neck CTA 08/24/24 12:52 IMPRESSION: Atherosclerotic calcification within the anterior and posterior intracranial circulation, without hemodynamically significant stenosis. No evidence of dissection, thrombosis or aneurysm. Reading Location: [facility] Active Medications Active Medications Active Medications: Current Medications Generic Name Dose Route Start Last Admin Trade Name Freq PRN Reason Stop Dose Admin Acetaminophen 650 mg 08/24/24 16:20 Acetaminophen 325 Mg Tablet PO Q6H PRN PRN Pain 1-10 Or Fever >100.7 Albuterol Sulfate 2.5 mg 08/24/24 16:20 Albuterol 2.5 Mg/3 Ml Vial.Neb. INHALATION Q2H PRN PRN SOB &/OR WHEEZING Atorvastatin Calcium 40 mg 08/24/24 22:00 08/24/24 20:31 Atorvastatin Calcium 40 Mg Tablet PO 40 mg QHS DEISY Administration Clopidogrel Bisulfate 75 mg 08/24/24 16:25 08/25/24 08:52 Clopidogrel Bisulfate 75 Mg Tablet PO 75 mg DAILY DEISY Administration Donepezil HCl 10 mg 08/24/24 22:00 08/24/24 20:32 Donepezil Hcl 10 Mg Tablet PO 10 mg QHS DEISY Administration Escitalopram Oxalate 10 mg 08/24/24 22:00 08/24/24 20:31 Escitalopram Oxalate 10 Mg Tablet PO 10 mg QHS DEISY Administration Hydralazine HCl 5 mg 08/24/24 16:20 Hydralazine 20 Mg/Ml Vial IV 08/25/24 16:24 Q30M PRN maintain BP parameters with HR <60 Sodium Chloride 250 mls @ 15 mls/hr 08/24/24 16:26 IV .[id number] PRN Saline Flush Sodium Chloride 250 mls @ 15 mls/hr 08/24/24 16:26 IV .[id number] PRN Additional IVPB Infusion Labetalol HCl 10 - 20 mg 08/24/24 16:20 Labetalol 20mg/4ml Syringe IV 08/25/24 16:24 Q10M PRN PRN maintain BP parameters with HR >/=60 Melatonin 3 mg 08/24/24 16:20 Melatonin 3 Mg Tablet PO QHS PRN PRN INSOMNIA Memantine 5 mg 08/24/24 16:30 08/25/24 08:52 Memantine Hydrochloride 5 Mg Tablet PO 5 mg BID DEISY Administration Pantoprazole Sodium 40 mg 08/24/24 16:25 08/25/24 08:52 Pantoprazole Sodium 40 Mg Tablet PO 40 mg DAILY DEISY Administration Senna/Docusate Sodium 2 tablet 08/24/24 16:20 Senna/Docusate Sodium 1 Tablet PO BID PRN PRN Constipation Sodium Chloride 10 - 40 ml 08/24/24 16:26 08/24/24 16:49 0.9% Saline Lock 10 Ml Syringe IV 10 ml UD PRN Administration SALINE FLUSH NIHSS NIHSS Nursing Documentation NIHSS Nursing Documentation: NIHSS: Ischemic Stroke/TIA Start: 08/24/24 16:24 Text: For PCU Patients: NIH and Neuro Check every 4 Status: Active hours, PRN and with change in RN caregiver. Freq: [id number] Protocol: Activity Type Activity Date Activity User E-sign Co-sign Detail Recorded Client Recorded Date Recorded By Document 08/25/24 08:00 ML [id number] 08/25/24 08:55 ML 08/25/24 08:00 NIH Stroke Scale [NIHSS] A score of 0 is normal or asymptomatic . Total possible score is 42. Inpatient: RN or Physician to activate a stroke alert for onset of new stroke symptoms or with NIHSS increase >/= 3 points. Following change in neurological status, NIHSS will be performed per physician order or more frequently PRN. -1a. Level of Consciousness 0 - Alert; keenly responsive -1b. LOC Questions 1 - Answers ONE question correctly -1c. LOC Commands 0 - Performs BOTH tasks correctly -2. Best Gaze 0 - Normal -3. Visual 0 - No visual loss -4. Facial Palsy 0 - Normal symmetrical movements -5a. Left Arm 0 - No drift; arm holds 90 ( or 45) degrees for full 10 seconds -5b. Right Arm 0 - No drift; arm holds 90 ( or 45) degrees for full 10 seconds -6a. Left Leg 0 - No drift; leg holds 30- degree position for full 5 seconds -6b. Right Leg 0 - No drift; leg holds 30- degree position for full 5 seconds -7. Limb Ataxia 0 - Absent -8. Sensory 0 - Normal; no sensory loss -9. Best Language 1 - Mild-to- moderate aphasia; -10. Dysarthria 0 - Normal -11. Extinction and Inattention 0 - No abnormality -Total 2 Query Text:A score of 0 is normal or asymptomatic. Total possible score is 42 . ED: Notify Physician for NIHSS increase by > / = 3 points. Inpatient: RN or Physician to activate a stroke alert for NIHSS increase of > / = 3 points. Coma Scale [Assess] -Eye Opening Spontaneous -Motor Obeys Commands -Verbal Confused [Total] -Coma Scale Total 14
--- NOTE | 2024-08-25 11:51 | PCM.PN.HOSP ---
Reason for Visit Reason for Visit: Diagnoses Aphasia (08/24/24) Objective Data Objective Data Vital Signs: Vital Signs Temp Pulse Resp BP Pulse Ox O2 Del Method 98.6 F 58 L 16 154/76 H 96 Room Air 08/25/24 08:00 08/25/24 08:00 08/25/24 08:00 08/25/24 08:00 08/25/24 08:00 08/25/24 08:56 Oxygen Delivery Method Room Air Weight: 121 lb Body Mass Index (BMI) 23.6 Intake & Output: Intake and Output for Last 24 Hours 08/23/24 08/24/24 08/25/24 23:59 23:59 23:59 Intake Total 0 / 240 749.17 / 749.17 Output Total 600 / 850 500 / 500 Balance -600 / -610 249.17 / 249.17 Lab / Micro Data 08/25/24 04:13 08/25/24 04:13 Labs: Laboratory Results - last 24 hr 08/24/24 12:54: WBC 5.4, RBC 4.46, Hgb 13.5, Hct 40.7, MCV 91.3, MCH 30.3, MCHC 33.2, RDW Std Deviation 44.9 H, RDW Coeff of Vashti 13.3, Plt Count 207, MPV 9.4, Immature Gran % (Auto) 0.400, Neut % (Auto) 47.4, Lymph % (Auto) 40.7, [place] % (Auto) 7.7, Eos % (Auto) 3.4, Baso % (Auto) 0.4, Absolute Neuts (auto) 2.5, Absolute Lymphs (auto) 2.18, Nucleated RBC % 0, PT 12.7, INR 0.9, APTT 26.1, Sodium 140, Potassium 4.3, Chloride 106, Carbon Dioxide 25.6, Anion Gap 9, BUN 26 H, Creatinine 1.05, Estim Creat Clear Calc 31.01 L, Est GFR (MDRD) Non-Af 52 L, BUN/Creatinine Ratio 24.8 H, Glucose 88, Calcium 9.0, Troponin T High Sens 10 08/24/24 13:40: Urine Color Yellow, Urine Clarity Clear, Urine pH 7.0, Ur Specific [place] 1.010, Urine Protein 15 H, Urine Glucose (UA) Normal, Urine Ketones Negative, Urine Occult Blood 10 H, Urine Nitrite Negative, Urine Bilirubin Negative, Urine Urobilinogen Normal, Ur Leukocyte Esterase Negative, Urine RBC 0 SEEN, Urine WBC 0 SEEN, Ur Squamous Epith Cells 0 SEEN, Urine Bacteria 0 SEEN, Urine Mucus 0 SEEN 08/24/24 15:00: Troponin T Hi Sens 2 Hr 10 08/24/24 17:25: Troponin T Hi Sens 4Hr 12 08/25/24 04:13: WBC 5.7, RBC 4.26, Hgb 13.0, Hct 38.7, MCV 90.8, MCH 30.5, MCHC 33.6, RDW Std Deviation 45.2 H, RDW Coeff of Vashti 13.5, Plt Count 199, MPV 9.7, Immature Gran % (Auto) 0.200, Neut % (Auto) 57.5, Lymph % (Auto) 29.6, [place] % (Auto) 9.0, Eos % (Auto) 3.2, Baso % (Auto) 0.5, Absolute Neuts (auto) 3.3, Absolute Lymphs (auto) 1.68, Nucleated RBC % 0, Sodium 141, Potassium 3.8, Chloride 107, Carbon Dioxide 24.9, Anion Gap 10, BUN 20 H, Creatinine 0.91, Estim Creat Clear Calc 35.78 L, Est GFR (MDRD) Non-Af 62, BUN/Creatinine Ratio 21.5 H, Glucose 81, Hemoglobin A1c 5.6, Calcium 8.9, Triglycerides 74, Cholesterol 201, LDL Cholesterol, Calc 120, VLDL Cholesterol 15, HDL Cholesterol 66, Cholesterol/HDL Ratio 3.03, TSH 2.470 Radiography Diagnostic Testing: Radiology Impression Brain CT 08/24/24 12:51 IMPRESSION: 1. Small vessel ischemic/degenerative changes. 2. Generalized brain atrophy. 3. No acute intracranial hemorrhage, midline shift or mass effect. If symptoms persist, further evaluation with MRI is recommended. Reading Location: [id number] Head/Neck CTA 08/24/24 12:52 IMPRESSION: Atherosclerotic calcification within the anterior and posterior intracranial circulation, without hemodynamically significant stenosis. No evidence of dissection, thrombosis or aneurysm. Reading Location: [facility] Rhythm Strip Rhythm Strip: Sinus Rhythm Rate: 60 Ectopy: PAC(s) Physical Exam Narrative Seen and examined Patient has baseline dementia with slow his speech, increased reaction time and possible mild hearing loss. She takes time in order to understand and speak about but as per family her speech was more delayed/difficulty speaking and had some left-sided weakness. In the morning, she is at baseline. Chronic left lower extremity weakness. I do not think patient has dysarthria or language deficit in the morning Physical exam General: Alert, Oriented x3, Cooperative HEENT: Atraumatic, PERRLA, EOMI, Normocephalic. Oral: No Gingival or Mucosal Lesions/ Ulcerations Neck: Supple, No JVD, Negative Carotid Bruits Chest wall/Lungs: Air entry diminished in bilateral lung bases. No crepitation/rhonchi Cardiovascular: Regular rate and rhythm, Normal S1,S2, No M/G/R Abdomen: Bowel Sounds Present, Soft, Non Tender, Non-Distended : No dysuria. No renal angle tenderness. No suprapubic tenderness. Extremities: No edema, Capillary Refill Less than 3 Seconds Skin: No rashes, No breakdown Musculoskeletal: Mild chronic weakness of left lower extremity, chronic. No Tenderness to Palpation of Joints or Extremities Neurological: Cranial nerves II-XII grossly intact, DTR 2+/4. Speech is delayed. No dysarthria, dysphagia. Psych/Mental Status: Flat affect. Dementia. Assessment & Plan Assessment/Plan (1) Expressive aphasia: PLAN: Plan This 83-year-old female admitted for being unresponsiveness, left-sided weakness and difficulty speaking, LKW at 10:30 PM on 08/23. Has left lower extremity chronic weakness. She had difficulty in getting the words out. She also had unresponsiveness, could not be wake up, delayed then the usual time of responsiveness: Exact time duration of unresponsiveness unclear. 1. Transient left-sided weakness, difficulty speaking/change in mental status: Exact etiology unclear. Patient being admitted in PCU. Possible differential diagnosis include change in mental status/acute encephalopathy. -CT head w/ no acute process -CTA head and neck with no LVO -MRI ordered -NIH q4hr Patient on Plavix and statin. -PT/OT/Speech eval -Teleneuro consult reviewed and recommended basic toxic metabolic encephalopathy workup, B12 TSH folate and ammonia. Thiamine supplement. The neurologist does not recommend DAPT due to prior episode of GI bleed and patient hesitant to take aspirin. -Hold BP medications to allow for permissive hypertension for 24 hours unless SBP greater than 220 or DBP greater than 120 or until stroke is ruled out #Dementia -Supportive care -Continue home medications # Remote history of gastric ulcers - Patient reports she has an allergy to aspirin and is not agreeable to taking that at this time, will start statin and Plavix with PPI and await workup and neuroconsultation #DVT ppx: SCDs Charges/Coding Visit Charges Inpatient E&M: 96627 Subs Hosp L2 NIHSS NIHSS Nursing Documentation NIHSS Nursing Documentation: NIHSS: Ischemic Stroke/TIA Start: 08/24/24 16:24 Text: For PCU Patients: NIH and Neuro Check every 4 Status: Active hours, PRN and with change in RN caregiver. Freq: [id number] Protocol: Activity Type Activity Date Activity User E-sign Co-sign Detail Recorded Client Recorded Date Recorded By Document 08/25/24 08:00 ML [id number] 08/25/24 08:55 ML 08/25/24 08:00 NIH Stroke Scale [NIHSS] A score of 0 is normal or asymptomatic . Total possible score is 42. Inpatient: RN or Physician to activate a stroke alert for onset of new stroke symptoms or with NIHSS increase >/= 3 points. Following change in neurological status, NIHSS will be performed per physician order or more frequently PRN. -1a. Level of Consciousness 0 - Alert; keenly responsive -1b. LOC Questions 1 - Answers ONE question correctly -1c. LOC Commands 0 - Performs BOTH tasks correctly -2. Best Gaze 0 - Normal -3. Visual 0 - No visual loss -4. Facial Palsy 0 - Normal symmetrical movements -5a. Left Arm 0 - No drift; arm holds 90 ( or 45) degrees for full 10 seconds -5b. Right Arm 0 - No drift; arm holds 90 ( or 45) degrees for full 10 seconds -6a. Left Leg 0 - No drift; leg holds 30- degree position for full 5 seconds -6b. Right Leg 0 - No drift; leg holds 30- degree position for full 5 seconds -7. Limb Ataxia 0 - Absent -8. Sensory 0 - Normal; no sensory loss -9. Best Language 1 - Mild-to- moderate aphasia; -10. Dysarthria 0 - Normal -11. Extinction and Inattention 0 - No abnormality -Total 2 Query Text:A score of 0 is normal or asymptomatic. Total possible score is 42 . ED: Notify Physician for NIHSS increase by > / = 3 points. Inpatient: RN or Physician to activate a stroke alert for NIHSS increase of > / = 3 points. Coma Scale [Assess] -Eye Opening Spontaneous -Motor Obeys Commands -Verbal Confused [Total] -Coma Scale Total 14
[2024-08-25 12:56] LABS: Ammonia 14.4 umol/L (11-51)
[2024-08-25 13:12] LABS: Vitamin B12 537 pg/mL (180-914)
--- NOTE | 2024-08-25 13:22 | CASEMGMT ---
Social Work: spring floor service worker received a message from Deputy Singer that was dated 08/24 at 21:36 stating they made contact with patient's , could tell there is some memory loss however overall did not feel there were current safety concerns. Patient's was in the process of getting himself a snack and was then planning on going to bed. No other course of action determined to be needed at that time. Malorie Foley, GLUE MILL OPERATOR, WATERSHED MANAGER
[2024-08-25] MEDS: Atorvastatin Calcium 40 MG Tablet PO (21:27)
[2024-08-25] MEDS: Donepezil HCl 10 MG Tablet PO (21:27)
[2024-08-25] MEDS: MELATONIN 3 MG TABLET PO (21:28)
[2024-08-25] MEDS: Escitalopram Oxalate 10 MG Tablet PO (21:28)
[2024-08-26] VITALS (7 sets, daily range): BP systolic 116–158; BP diastolic 69–78; PULSE 52–85; RESP 15–16; TEMP 36.6–36.9; O2SAT 95–96; BMI 23.6
--- NOTE | 2024-08-26 08:30 | MRI_ITS ---
EXAM: BRAIN WITHOUT CONTRAST CLINICAL HISTORY: CVA/TIA R/O expressive aphasia, left-sided weakness, mental status change COMPARISON: August 24, [address] TECHNIQUE: Multiplanar, multisequence MR images of the brain were obtained without gadolinium contrast material. FINDINGS: No intracranial hemorrhage, mass, mass effect, midline shift or pathologic extra- axial fluid collection. No hydrocephalus. There is abnormal increased T2 and FLAIR signal in the deep white matter on the right and left with moderate chronic small-vessel ischemic change. There is no acute diffusion abnormality. No gradient signal blooming artifacts are identified. No cerebellar tonsillar ectopia. No sellar/suprasellar signal abnormalities. The ocular globes and intraorbital soft tissues are symmetrically unremarkable. A 0.9 cm mucous retention cyst is visible in the right maxillary sinus. MRI/Brain without Contrast IMPRESSION: There is abnormal increased T2 and FLAIR signal in the deep white matter on the right and left with moderate chronic small-vessel ischemic change. There is no acute diffusion abnormality. A 0.9 cm mucous retention cyst is visible in the right maxillary sinus. Reading Location: [facility]
[2024-08-26] MEDS: Pantoprazole Sodium 40 MG Tablet PO (10:47)
[2024-08-26] MEDS: Memantine Hydrochloride 5 MG Tablet PO ×2 (10:47→23:14)
[2024-08-26] MEDS: Clopidogrel Bisulfate 75 MG Tablet PO (10:48)
--- NOTE | 2024-08-26 12:07 | DCINST_ITS ---
Discharge Instructions Diet Discharge Diet: 2000 mg Sodium Diet Dressing / Incision Discharge Activity: Return to Normal Activity Weight Bearing Status: Weight bearing as tolerated Dressing / Incision Call your doctor if you observe: Fever of 101 or Higher, Coldness, Increased Pain, Numbness or Tingling, Change in Color, Inability to urinate, Inability to have a bowel movement, Shortness of breath, Dizziness, Fainting spells, Swelling in the ankles, Chest pain, Prolonged hiccupping, Increased palpitations (irregular heartbeat) and Calf discomfort Follow Up Care When: IN 2 WEEKS Test Results: Test results from this visit will be discussed in further detail at your follow- up appointment, if applicable. Discharge Plan Admission Admit Date/Time: 08/24/24 15:43 Primary Reason for Your Visit: Change in mental status. Acute stroke ruled out. Attending Provider: Pablo Dobson Primary Care Provider: Vu Bryant Consulting Providers: Dylan Rondon; Mazin Leigh; Xiomara Jarvis; Khushbu Pascual; Avril Rawls; Rene Romano; Fannie Morales; Kendell Fofana; Elliot Augustine; Alex Rondon; Evonne Prajapati; Sonny Luong; More Dennis; Samantha Martinez; Marquis Faust; Robin Hurst; Lucia Khan; Tony Alexis; Suzanna Bernal; Miller Escalante; Suha Fong Discharge Orders/Prescriptions Prescriptions: New atorvastatin 40 mg Tablet 40 mg PO QHS 30 Days Qty: 30 2RF clopidogrel 75 mg Tablet 75 mg PO DAILY 30 Days Qty: 30 2RF lisinopril 10 mg tablet 5 mg PO DAILY 30 Days Qty: 30 2RF Rx Instructions: Hold for SBP less than 130 mmHg Continued donepezil 10 mg tablet 10 mg PO QHS escitalopram oxalate 10 mg tablet 10 mg PO DAILY memantine 5 mg tablet 5 mg PO BID Referrals / Follow Up: Vu Bryant MD [Primary Care Provider] - Kaitlin Kirby MD [Med Staff - Active Staff] - Disposition Disposition (needs filled in before D/C Order can be placed): Home, Self Care
--- NOTE | 2024-08-26 12:20 | CASEMGMT ---
LEONARDO GRIFFIN updated by therapy that patient required min assist with activities and recommending SNF at discharge. Patient is confused, LEONARDO GRIFFIN called daughter, Toya, no answer and VM left with return contact informations. LEONARDO GRIFFIN updated SW.
--- NOTE | 2024-08-26 15:38 | CASEMGMT ---
LEONARDO GRIFFIN received message that daughter Toya is currently in patient's room. LEONARDO GRIFFIN in to discuss needs at discharge with daughter. Daughter asked to speak privately. LEONARDO GRIFFIN spoke with daughter regarding progress with therapy as patient is requiring min assist with ADLs. A list of SNF and HHC providers including quality and resource use data and consistent with the patient?s preferred geographical region, medical needs, and insurance network were provided via the [employer]. After discussing SNF vs HHC, daughter states she would prefer patient to go to SNF for additional therapy before discharging to daughter's home. Daughter reviewed list and prefers [facility]. LEONARDO GRIFFIN reviewed RAO form with daughter, daughter voiced understnading. Daughter signed RAO form and filed in chart. Daughter provided with copy of signed RAO form. Daughter had no further questions or concerns. LEONARDO GRIFFIN updated SW regarding request for [facility] at discharge. LEONARDO GRIFFIN updated hospitalist.
--- NOTE | 2024-08-26 15:58 | STROKE.PNOTE ---
Objective Data Objective Data Vital Signs: Vital Signs Temp Pulse Resp BP Pulse Ox O2 Del Method 97.8 F 58 L 16 158/72 H 96 Room Air 08/26/24 10:00 08/26/24 10:00 08/26/24 10:00 08/26/24 10:00 08/26/24 10:00 08/26/24 10:00 Oxygen Delivery Method Room Air Weight: 54.885 kg Body Mass Index (BMI) 23.6 Intake & Output: Intake and Output for Last 24 Hours 08/24/24 08/25/24 08/26/24 23:59 23:59 23:59 Intake Total 0 / 240 1109.17 / 1169.17 180 / 180 Output Total 600 / 850 1550 / 1550 Balance -600 / -610 -440.83 / -380.83 180 / 180 Lab / Micro Data 08/25/24 04:13 08/25/24 04:13 Radiography Diagnostic Testing: Radiology Impression Brain MRI 08/26/24 08:30 IMPRESSION: There is abnormal increased T2 and FLAIR signal in the deep white matter on the right and left with moderate chronic small-vessel ischemic change. There is no acute diffusion abnormality. A 0.9 cm mucous retention cyst is visible in the right maxillary sinus. Reading [facility] Rhythm Strip Rhythm Strip: Sinus Rhythm Rate: 60 Ectopy: PAC(s) Subject: Neurology Subjective MARCO JACQUES is a 83 year old F, who we are seeing in consultation today for advice on the management of transient communication difficulty and related patient care. Ms. Jacques a history of dementia who presents for evaluation of an episode of confusional awakening. Ms. Jacques was reportedly in her normla state of health upon going to be the night before prior to awakening with confusion (this is not uncommon for her), but thsi was of greater severity and duration than typical. Symptoms persisted for about 2 hours. At her worst she was unable to speak at all, although she appears to have been following some simple commands. Mostly it seems that she was globally weak. There were some notes of left leg weakness, specifically, but her daughter suspects that may hvae been a reflection of her severe varicose veins. Her family believes she is at her baseline currently. EEG Results Procedure Details EEG Procedure Details: MARCO JACQUES is a 83 year old F with a past medical history of , who presents for evaluation of Electroencephalogram on DATE at TIME Assessment and Plan: Stroke Assessment/Plan MARCO JACQUES is a 83 F with a history of dementia who presented with transient language difficulty - global encephalopathy (favored) vs. post-ictal state vs. less likely TIA (given symptom duration and lack of clear focality). - Given her dementia and the diagnostic uncertainty, do no think robert the risk-benefit profile of anti-seizure meds makes sense at this point. A routine EEG may help stratify her risk, but most likely would not recommend treatment unless additional events occurred with more clearly suggestive clinical features - Given the possibility fo TIA, would recommend an anti-platelet agent and continuing atorvastatin. - Ensure that evaluation for causes of global encephalopathy is unremarkable. Neurological examination shows slow to respond to questions, disoriented to place and time, but able to name simple objects on confrontational naming, able to repeat and able to follow simple and multi-step commands. No focal motor or sensory deficits Neuroimaging shows no acute infarct. No deficits in her left leg at this time (unlike her earlier documented exam), which may be due to position and pain. [Quick text reminder: .OSUtnk/.OSUnontnk] NIHSS NIHSS Nursing Documentation NIHSS Nursing Documentation: NIHSS: Ischemic Stroke/TIA Start: 08/24/24 16:24 Text: For PCU Patients: NIH and Neuro Check every 4 Status: Complete hours, PRN and with change in RN caregiver. Freq: [id number] Protocol: Activity Type Activity Date Activity User E-sign Co-sign Detail Recorded Client Recorded Date Recorded By Document 08/26/24 10:00 EM [id number] 08/26/24 10:42 EM 08/26/24 10:00 NIH Stroke Scale [NIHSS] A score of 0 is normal or asymptomatic . Total possible score is 42. Inpatient: RN or Physician to activate a stroke alert for onset of new stroke symptoms or with NIHSS increase >/= 3 points. Following change in neurological status, NIHSS will be performed per physician order or more frequently PRN. -1a. Level of Consciousness 0 - Alert; keenly responsive -1b. LOC Questions 0 - Answers BOTH questions correctly -1c. LOC Commands 0 - Performs BOTH tasks correctly -2. Best Gaze 0 - Normal -3. Visual 0 - No visual loss -4. Facial Palsy 0 - Normal symmetrical movements -5a. Left Arm 0 - No drift; arm holds 90 ( or 45) degrees for full 10 seconds -5b. Right Arm 0 - No drift; arm holds 90 ( or 45) degrees for full 10 seconds -6a. Left Leg 3 - No effort against gravity ; leg falls to bed immediately -6b. Right Leg 0 - No drift; leg holds 30- degree position for full 5 seconds -7. Limb Ataxia 0 - Absent -8. Sensory 0 - Normal; no sensory loss -9. Best Language 1 - Mild-to- moderate aphasia; -10. Dysarthria 0 - Normal -11. Extinction and Inattention 0 - No abnormality -Total 4 Query Text:A score of 0 is normal or asymptomatic. Total possible score is 42 . ED: Notify Physician for NIHSS increase by > / = 3 points. Inpatient: RN or Physician to activate a stroke alert for NIHSS increase of > / = 3 points. Coma Scale [Assess] -Eye Opening Spontaneous -Motor Obeys Commands -Verbal Confused [Total] -Coma Scale Total 14
--- NOTE | 2024-08-26 16:02 | PN.HOSP_ITS ---
Reason for Visit Reason for Visit: Diagnoses Aphasia (08/24/24) Objective Data Objective Data Vital Signs: Vital Signs Temp Pulse Resp BP Pulse Ox O2 Del Method 97.8 F 58 L 16 158/72 H 96 Room Air 08/26/24 10:00 08/26/24 10:00 08/26/24 10:00 08/26/24 10:00 08/26/24 10:00 08/26/24 10:00 Oxygen Delivery Method Room Air Weight: 121 lb 0.011 oz Body Mass Index (BMI) 23.6 Intake & Output: Intake and Output for Last 24 Hours 08/24/24 08/25/24 08/26/24 23:59 23:59 23:59 Intake Total 0 / 240 1109.17 / 1169.17 180 / 180 Output Total 600 / 850 1550 / 1550 Balance -600 / -610 -440.83 / -380.83 180 / 180 Lab / Micro Data 08/25/24 04:13 08/25/24 04:13 Radiography Diagnostic Testing: Radiology Impression Brain MRI 08/26/24 08:30 IMPRESSION: There is abnormal increased T2 and FLAIR signal in the deep white matter on the right and left with moderate chronic small-vessel ischemic change. There is no acute diffusion abnormality. A 0.9 cm mucous retention cyst is visible in the right maxillary sinus. Reading Location: [facility] Rhythm Strip Rhythm Strip: Sinus Rhythm Rate: 60 Ectopy: PAC(s) Physical Exam Narrative Seen and examined Patient was lethargic/sleepy in the morning and talks sometime to wake her up. After she woke up she behaved normally. Had MRI. Patient has baseline dementia with slow his speech, increased reaction time and possible mild hearing loss. She takes time in order to understand and speak about but as per family her speech was more delayed/difficulty speaking and had some left-sided weakness. I Chronic left lower extremity weakness. Physical exam General: Awake. Oriented x3, Cooperative HEENT: Atraumatic, PERRLA, EOMI, Normocephalic. Oral: No Gingival or Mucosal Lesions/ Ulcerations Neck: Supple, No JVD, Negative Carotid Bruits Chest wall/Lungs: Air entry diminished in bilateral lung bases. No crepitation/rhonchi Cardiovascular: Regular rate and rhythm, Normal S1,S2, No M/G/R Abdomen: Bowel Sounds Present, Soft, Non Tender, Non-Distended : No dysuria. No renal angle tenderness. No suprapubic tenderness. Extremities: No edema, Capillary Refill Less than 3 Seconds Skin: No rashes, No breakdown Musculoskeletal: Mild chronic weakness of left lower extremity, chronic. No Tenderness to Palpation of Joints or Extremities Neurological: Cranial nerves II-XII grossly intact, DTR 2+/4. Speech is delayed. No dysarthria, dysphagia. Psych/Mental Status: Flat affect. Dementia. Assessment & Plan Assessment/Plan (1) Expressive aphasia: PLAN: Plan This 83-year-old female admitted for being unresponsiveness, left-sided weakness and difficulty speaking, LKW at 10:30 PM on 08/23. Has left lower extremity chronic weakness. She had difficulty in getting the words out. She also had unresponsiveness, could not be wake up, delayed then the usual time of responsiveness: Exact time duration of unresponsiveness unclear. 1. Transient left-sided weakness, difficulty speaking/change in mental status: Exact etiology unclear. Patient being admitted in PCU. Possible differential diagnosis include change in mental status/acute encephalopathy. -CT head w/ no acute process -CTA head and neck with no LVO -MRI ordered -NIH q4hr Patient on Plavix and statin. -PT/OT/Speech eval -Teleneuro consult reviewed and recommended basic toxic metabolic encephalopathy workup, B12 TSH folate and ammonia. Thiamine supplement. The neurologist does not recommend DAPT due to prior episode of GI bleed and patient hesitant to take aspirin. -Hold BP medications to allow for permissive hypertension for 24 hours unless SBP greater than 220 or DBP greater than 120 or until stroke is ruled out 08/26: Patient was evaluated by teleneurologist. Patient has vague history and possible differential is seizure, atypically prolonged/severe TIA versus fluctuation in dementia. He does not recommend starting antiseizure medication for first episode which is also consulted. Continue antiplatelet agent clopidogrel versus aspirin. Echo is done but not reported. Evaluated by PT and needs more time for assessment. #Dementia -Supportive care -Continue home medications # Remote history of gastric ulcers - Patient reports she has an allergy to aspirin and is not agreeable to taking that at this time, will start statin and Plavix with PPI and await workup and neuroconsultation #DVT ppx: SCDs Charges/Coding Visit Charges Inpatient E&M: 07664 Subs Hosp L2 NIHSS NIHSS Nursing Documentation NIHSS Nursing Documentation: NIHSS: Ischemic Stroke/TIA Start: 08/24/24 16:24 Text: For PCU Patients: NIH and Neuro Check every 4 Status: Complete hours, PRN and with change in RN caregiver. Freq: [id number] Protocol: Activity Type Activity Date Activity User E-sign Co-sign Detail Recorded Client Recorded Date Recorded By Document 08/26/24 10:00 EM [id number] 08/26/24 10:42 EM 08/26/24 10:00 NIH Stroke Scale [NIHSS] A score of 0 is normal or asymptomatic . Total possible score is 42. Inpatient: RN or Physician to activate a stroke alert for onset of new stroke symptoms or with NIHSS increase >/= 3 points. Following change in neurological status, NIHSS will be performed per physician order or more frequently PRN. -1a. Level of Consciousness 0 - Alert; keenly responsive -1b. LOC Questions 0 - Answers BOTH questions correctly -1c. LOC Commands 0 - Performs BOTH tasks correctly -2. Best Gaze 0 - Normal -3. Visual 0 - No visual loss -4. Facial Palsy 0 - Normal symmetrical movements -5a. Left Arm 0 - No drift; arm holds 90 ( or 45) degrees for full 10 seconds -5b. Right Arm 0 - No drift; arm holds 90 ( or 45) degrees for full 10 seconds -6a. Left Leg 3 - No effort against gravity ; leg falls to bed immediately -6b. Right Leg 0 - No drift; leg holds 30- degree position for full 5 seconds -7. Limb Ataxia 0 - Absent -8. Sensory 0 - Normal; no sensory loss -9. Best Language 1 - Mild-to- moderate aphasia; -10. Dysarthria 0 - Normal -11. Extinction and Inattention 0 - No abnormality -Total 4 Query Text:A score of 0 is normal or asymptomatic. Total possible score is 42 . ED: Notify Physician for NIHSS increase by > / = 3 points. Inpatient: RN or Physician to activate a stroke alert for NIHSS increase of > / = 3 points. Coma Scale [Assess] -Eye Opening Spontaneous -Motor Obeys Commands -Verbal Confused [Total] -Coma Scale Total 14
--- NOTE | 2024-08-26 16:09 | CASEMGMT ---
Addendum entered by Pretty Salomon 08/26/24 16:20: [facility] accepted and will start precert. RNCM and pt updated. MEENU Gabriel Original Note: Social Work- SW created a list of SNF providers including quality and resource use data and consistent with the patient?s preferred geographic region, medical needs, and insurance network were provided from the [facility] Guide. MIGUEL ANGEL received notice from RNCM that pt and pt family are requesting a referral to [facility]. MIGUEL ANGEL completed referral via [facility]. MIGU[facility] ANG[facility] remains available to follow. MEENU Gabriel
--- NOTE | 2024-08-26 16:17 | CHAPLAIN ---
Type of Pastoral Visit _x__ Initial Visit ___ Follow-up Visit ___ On-call Visit ___ General Patient Visit ___ Spiritual Assessment ___ Family Conference ___ Bereavement ___ Rapid Response ___ Code Blue ___ Other (describe below) Pastoral Care Referral From _x__ Patient ___ Family ___ Nurse ___ Physician ___ Ski Edge Painter ___ Manager Military ___ Other (describe below) Sacrament/Intervention _x__ Active listening ___ Anointing ___ Cheondoism ___ Bereavement ___ Communion _x__ Katya exploration ___ _x__ Life review _x__ Prayer ___ Reconciliation ___ Sacrament of Sick _x__ Supportive presence ___ Wedding ___ Other (describe below) Pastoral Comments patient was able to describe much about her situation; pt expressed her katya in God and welcomed someone to talk with and to have prayer given; pt also talks about her animals which gives her purpose and deniz
--- NOTE | 2024-08-26 16:20 | CASEMGMT ---
LEONARDO GRIFFIN updated by MIGUEL ANGEL that [facility] has accepted patient and starting precert. RN CM updated daughter and patient. Daughter and patient appreciative and had no further questions or concerns. CM will continue to follow this patient and plan for safe discharge.
[2024-08-26] MEDS: Donepezil HCl 10 MG Tablet PO (23:13)
[2024-08-26] MEDS: Escitalopram Oxalate 10 MG Tablet PO (23:13)
[2024-08-26] MEDS: Atorvastatin Calcium 40 MG Tablet PO (23:14)
[2024-08-26] MEDS: 0.9% Saline Lock 10 ML Syringe IV (23:14)
[2024-08-26] MEDS: MELATONIN 3 MG TABLET PO (23:20)
[2024-08-27 01:42] VITALS: BMI 23.6
[2024-08-27 03:00] VITALS: PULSE 54
[2024-08-27 06:59] VITALS: BP 158/93; PULSE 68; RESP 15; TEMP 36.7; O2SAT 96
[2024-08-27 08:21] VITALS: O2SAT 97
[2024-08-27 09:26] VITALS: BP 102/62; PULSE 78; RESP 17; TEMP 36.7; O2SAT 100
[2024-08-27] MEDS: Pantoprazole Sodium 40 MG Tablet PO (09:33)
[2024-08-27] MEDS: Clopidogrel Bisulfate 75 MG Tablet PO (09:33)
[2024-08-27] MEDS: Memantine Hydrochloride 5 MG Tablet PO (09:33)
--- NOTE | 2024-08-27 09:57 | CASEMGMT ---
[facility] has obtained auth to admit. Meagan Crump DC Planning Asst.
--- NOTE | 2024-08-27 09:58 | CASEMGMT ---
Discharge Planning Per pts daughter, pts legal name is Kimberlee. Meagan Crump DC Planning Asst.
--- NOTE | 2024-08-27 10:33 | TREXTCAR_ITS ---
Diet Diet Order/Speech Therapy: 08/25/24 04:16 Diet: Regular - General Type of Dietary Supplement:: Ensure Plus High Protein Diet Comments: 120 ml vanilla EPHP tid Routine Orders/Code Status Suppository Type: Dulcolax 10mg Suppository Frequency: Daily PRN DC O2, CPAP, BIPAP needs Home O2 Discharge instructions: No Therapies Extremity Affected:: Bilateral Lower Physical Therapy: Eval and Treat Occupational Therapy: Eval and Treat Speech Therapy: Eval and Treat Problem/Diagnosis (1) Expressive aphasia: Status: Acute Code(s): R47.01 - Aphasia Plan This 83-year-old female admitted for being unresponsiveness, left-sided weakness and difficulty speaking, LKW at 10:30 PM on 08/23. 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 She had difficulty in getting the words out. She also had unresponsiveness, could not be wake up, delayed then the usual time of responsiveness: Exact time duration of unresponsiveness unclear. 1. Transient left-sided weakness, difficulty speaking/change in mental status: Exact etiology unclear. Patient being admitted in PCU. Possible differential diagnosis include change in mental status/acute encephalopathy. -CT head w/ no acute process -CTA head and neck with no LVO -MRI ordered -NIH q4hr Patient on Plavix and statin. -PT/OT/Speech eval -Teleneuro consult reviewed and recommended basic toxic metabolic encephalopathy workup, B12 TSH folate and ammonia. Thiamine supplement. The neurologist does not recommend DAPT due to prior episode of GI bleed and patient hesitant to take aspirin. -Hold BP medications to allow for permissive hypertension for 24 hours unless SBP greater than 220 or DBP greater than 120 or until stroke is ruled out 08/26: Patient was evaluated by teleneurologist. Patient has vague history and possible differential is seizure, atypically prolonged/severe TIA versus fluctuation in dementia. He does not recommend starting antiseizure medication for first episode which is also consulted. Continue antiplatelet agent clopidogrel versus aspirin. Echo is done but not reported. Evaluated by PT and needs more time for assessment. #Dementia -Supportive care -Continue home medications # Remote history of gastric ulcers - Patient reports she has an allergy to aspirin and is not agreeable to taking that at this time, will start statin and Plavix with PPI and await workup and neuroconsultation #DVT ppx: SCDs Allergies/Procedures Done in Hospital Allergies Penicillins Allergy (Verified 08/24/24 13:45) unknown Type of Care/Length of Stay Estimated LOS: Convalescent Care Less Than 30 days Type of Care Needed: Skilled Rehab Potential: Good Prognosis: Good Additional Orders/Day of Discharge Day of Discharge: 08/27/24 Dietary and Speech Recommendations Dietitian Recommendations/Changes: Continue regular diet. Will order 120ml vanilla EPHP TID with meals. Will monitor weight trends. Discharge Plan Admission Admit Date/Time: 08/24/24 15:43 Primary Reason for Your Visit: Change in mental status. Acute stroke ruled out. Attending Provider: Pablo Dobson Primary Care Provider: Vu Bryant Consulting Providers: Dylan Rondon; Mazin Leigh; Xiomara Jarvis; Khushbu Pascual; Avril Rawls; Rene Romano; Fannie Morales; Kendell Fofana; Elliot Augustine; Alex Rondon; Evonne Prajapati; Sonny Luong; More Dennis; Samantha Martinez; Marquis Faust; Robin Hurst; Lucia Khan; Tony Alexis; Suzanna Bernal; Miller Escalante; Suha Fong Discharge Orders/Prescriptions Prescriptions: New atorvastatin 40 mg Tablet 40 mg PO QHS 30 Days Qty: 30 2RF clopidogrel 75 mg Tablet 75 mg PO DAILY 30 Days Qty: 30 2RF lisinopril 10 mg tablet 5 mg PO DAILY 30 Days Qty: 30 2RF Rx Instructions: Hold for SBP less than 130 mmHg Continued donepezil 10 mg tablet 10 mg PO QHS escitalopram oxalate 10 mg tablet 10 mg PO DAILY memantine 5 mg tablet 5 mg PO BID Referrals / Follow Up: Vu Bryant MD [Primary Care Provider] - Kaitlin Kirby MD [Med Staff - Active Staff] - Raymond Lake MD [Non-Staff -Ordering Privileges] - Within 1 Month Disposition Disposition (needs filled in before D/C Order can be placed): Home, Self Care
--- NOTE | 2024-08-27 11:06 | CASEMGMT ---
Patient was approved to go to [facility]. SW completed a PASRR as patient is observation status. Plan: d/c to [facility] under skilled level of care on a PASRR. Physicians will transport patient via wheelchair van. Zhane VELASQUEZ
[2024-08-27 12:00] VITALS: BMI 23.6
--- NOTE | 2024-08-27 12:36 | PCM.DC.SUM ---
Providers Date of Admission: 08/24/24 Date of Discharge: 08/27/24 Primary Care Physician: Dr. Vu Bryant MD Consultations 08/24/24 16:24 Consult: Tele-Neurology Routine Consulting Provider: [facility] Reason for Consult: Acute Ischemic Stroke/TIA EMERGENT Consult: No MD Notified: Yes Date Notified: 08/24/24 Time Notified: 16:24 Method of Notification: Answering Service Nursing Unit Staff Notify [facility] of Tele-Neurology Consult: Yes Reason For Visit: EXPRESSIVE APHASIA Diagnosis Discharge Diagnosis (1) Expressive aphasia: Status: Acute Code(s): R47.01 - Aphasia Plan This 83-year-old female admitted for being unresponsiveness, left-sided weakness and difficulty speaking, LKW at 10:30 PM on 08/23. Has left lower extremity chronic weakness. She had difficulty in getting the words out. She also had unresponsiveness, could not be wake up, delayed then the usual time of responsiveness: Exact time duration of unresponsiveness unclear. 1. Transient left-sided weakness, difficulty speaking/change in mental status: Exact etiology unclear. Patient being admitted in PCU. Possible differential diagnosis include change in mental status/acute encephalopathy. -CT head w/ no acute process -CTA head and neck with no LVO -MRI ordered -NIH q4hr Patient on Plavix and statin. -PT/OT/Speech eval -Teleneuro consult reviewed and recommended basic toxic metabolic encephalopathy workup, B12 TSH folate and ammonia. Thiamine supplement. The neurologist does not recommend DAPT due to prior episode of GI bleed and patient hesitant to take aspirin. -Hold BP medications to allow for permissive hypertension for 24 hours unless SBP greater than 220 or DBP greater than 120 or until stroke is ruled out 08/26: Patient was evaluated by teleneurologist. Patient has vague history and possible differential is seizure, atypically prolonged/severe TIA versus fluctuation in dementia. He does not recommend starting antiseizure medication for first episode which is also consulted. Continue antiplatelet agent clopidogrel versus aspirin. Echo is done but not reported. Evaluated by PT and needs more time for assessment. 08/27: Patient was ready for discharge yesterday but pre-CERT obtained today. Discharged on the medications Plavix and high intensity statin. Follow-up with a neurologist #Dementia -Supportive care -Continue home medications # Remote history of gastric ulcers - Patient reports she has an allergy to aspirin and is not agreeable to taking that at this time, will start statin and Plavix with PPI and await workup and neuroconsultation #DVT ppx: SCDs Discharge medication reconciliation done. Discharge follow-up instructions completed. Discharge process discussed with the patient and all questions were answered to patient's satisfaction. Follow with PCP in 1 to 2 weeks Total time spent, exact 35 minutes on discharge meds reconciliation, examination, coordination of care with nurses and ancillary staff, review of imaging and blood test and discussion with the patient on follow-up instructions. Medications at Discharge Home Medications donepezil 10 mg tablet 10 mg PO QHS 08/24/24 escitalopram oxalate 10 mg tablet 10 mg PO DAILY 08/24/24 memantine 5 mg tablet 5 mg PO BID 08/24/24 atorvastatin 40 mg tablet 40 mg PO QHS 30 days #30 tabs 08/26/24 clopidogrel 75 mg tablet 75 mg PO DAILY 30 days #30 tabs 08/26/24 lisinopril 10 mg tablet 5 mg (1/2 x 10 mg) PO DAILY 1 month #30 tabs 08/26/24 Physical Exam Narrative Seen and examined Patient is awake alert oriented x 3. Pre-CERT obtained. P Patient has baseline dementia with slow his speech, increased reaction time and possible mild hearing loss. She takes time in order to understand and speak about but as per family her speech was more delayed/difficulty speaking and had some left-sided weakness. I Chronic left lower extremity weakness. Physical exam General: Awake. Oriented x3, Cooperative HEENT: Atraumatic, PERRLA, EOMI, Normocephalic. Oral: No Gingival or Mucosal Lesions/ Ulcerations Neck: Supple, No JVD, Negative Carotid Bruits Chest wall/Lungs: Air entry diminished in bilateral lung bases. No crepitation/rhonchi Cardiovascular: Regular rate and rhythm, Normal S1,S2, No M/G/R Abdomen: Bowel Sounds Present, Soft, Non Tender, Non-Distended : No dysuria. No renal angle tenderness. No suprapubic tenderness. Extremities: No edema, Capillary Refill Less than 3 Seconds Skin: No rashes, No breakdown Musculoskeletal: Mild chronic weakness of left lower extremity, chronic. No Tenderness to Palpation of Joints or Extremities Neurological: Cranial nerves II-XII grossly intact, DTR 2+/4. Speech is delayed. No dysarthria, dysphagia. Psych/Mental Status: Flat affect. Dementia. Weight / BMI Weight Weight: 121 lb 0.011 oz Body Mass Index (BMI) 23.6 ABG / Lab / Microbiology Data 08/25/24 04:13 08/25/24 04:13 Radiography Diagnostic Testing: Radiology Impression Echocardiogram 08/24/24 16:24 Interpretation Summary Normal LV size. The left ventricular ejection fraction is 65 %. Stage 1 diastolic dysfunction. Structurally normal valves. Ordering Physician: Pablo Dobson Performed By: Nick Rene RCS D/C Instructions DC O2, CPAP, BIPAP Needs Home O2 Discharge instructions: No Meaningful Use Info Meaningful Use Meaningful Use Diagnoses (Choose all that apply): None applicable Ischemic Stroke Statin Dosing Therapy Reference: STATIN DOSE THERAPY REFERENCE: * Patients > 75 years receive moderate or high dose statin therapy. * Patients 75 years or YOUNGER should receive HIGH intensity statin dose unless contraindicated. You will be required to document reason for non-treatment if statin daily dose does not meet guidelines. HIGH DOSE STATIN THERAPY DAILY Atorvastatin > than or = to 40 mg Rosuvastatin > than or = to 20 mg Amlodipine + Atorvastatin > than or = to 2.5/40 mg Ezetimibe + Simvastatin 10/80 mg Simvastatin 80mg Discharge Plan Admission Admit Date/Time: 08/24/24 15:43 Primary Reason for Your Visit: Change in mental status. Acute stroke ruled out. Attending Provider: Pablo Dobson Primary Care Provider: Vu Bryant Consulting Providers: Dylan Rondon; Mazin Leigh; Xiomara Jarvis; Khushbu Pascual; Avril Rawls; Rene Romano; Fannie Morales; Kendell Fofana; Elliot Augustine; lAex Rondon; Evonne Prajapati; Sonny Luong; More Dennis; Samantha Martinez; Marquis Faust; Robin Hurst; Lucia Khan; Tony Alexis; Suzanna Bernal; Miller Escalante; Suha Fong Discharge Orders/Prescriptions Prescriptions: New atorvastatin 40 mg Tablet 40 mg PO QHS 30 Days Qty: 30 2RF clopidogrel 75 mg Tablet 75 mg PO DAILY 30 Days Qty: 30 2RF lisinopril 10 mg tablet 5 mg PO DAILY 30 Days Qty: 30 2RF Rx Instructions: Hold for SBP less than 130 mmHg Continued donepezil 10 mg tablet 10 mg PO QHS escitalopram oxalate 10 mg tablet 10 mg PO DAILY memantine 5 mg tablet 5 mg PO BID Referrals / Follow Up: Vu Bryant MD [Primary Care Provider] - Kaitlin Kirby MD [Med Staff - Active Staff] - Raymond Lake MD [Non-Staff -Ordering Privileges] - Within 1 Month Disposition Disposition (needs filled in before D/C Order can be placed): Home, Self Care Charges/Coding Visit Charges Inpatient E&M: 90484 Disch Hosp >30min
--- NOTE | 2024-08-27 13:07 | PHA.DC.MR.R ---
Pharmacy [place] Med Reconciliation Pharmacy Service has performed discharge medication reconciliation for this patient. The patient's discharge medication list was reviewed for discrepancies and discrepancies were resolved. Medications at Discharge Home Medications donepezil 10 mg tablet 10 mg PO QHS 08/24/24 escitalopram oxalate 10 mg tablet 10 mg PO DAILY 08/24/24 memantine 5 mg tablet 5 mg PO BID 08/24/24 atorvastatin 40 mg tablet 40 mg PO QHS 30 days #30 tabs 08/26/24 clopidogrel 75 mg tablet 75 mg PO DAILY 30 days #30 tabs 08/26/24 lisinopril 10 mg tablet 5 mg (1/2 x 10 mg) PO DAILY 1 month #30 tabs 08/26/24
--- NOTE | 2024-08-27 13:58 | NURSING ---
Report called to the Harvey Aguilar LPN
[2024-08-27 14:08] VITALS: BP 127/64; PULSE 89; RESP 16; TEMP 37; O2SAT 97
--- NOTE | 2024-08-27 14:10 | CASEMGMT ---
Discharge Planning Discharge orders and transport time sent to [facility]. Physicians will transport pt by wheelchair at 2:30p. Nursing, SW, pt, her , and her daughter (Toya) updated. Meagan Crump DC Planning Asst.
[2024-08-27 15:13] VITALS: BMI 23.6
== END 2024-08-27 12:34 | disposition home or self-care (01) ==
LOC: ED 14:36 → PCU 08-25 07:13
PROVIDERS: Admitting Provider Internal Medicine; Emergency Provider Emergency Medicine; PCP Family Medicine; Visit Provider Internal Medicine
DX: R47.01 Aphasia (principal); F02.80 Dementia in other diseases classified elsewhere, unspecified severity, without behavioral disturbance, psychotic disturbance, mood disturbance, and anxiety; G45.9 Transient cerebral ischemic attack, unspecified; R29.898 Other symptoms and signs involving the musculoskeletal system; J45.909 Unspecified asthma, uncomplicated; F32.A Depression, unspecified; Z79.899 Other long term (current) drug therapy; Z88.6 Allergy status to analgesic agent
CPT/HCPCS: 36415; 51702; 70450; 70496; 70498; 70551; 80048; 80061; 81001; 82140; 82607; 82746; 83036; 84443; 84484; 85025; 85610; 85730; 92610; 93005; 93306; 96374; 97162; 97166; 97530; 97535; 97802; 99221; 99285; Q9967; A4216; G0378

== ENCOUNTER → 2024-11-04 | Outpatient (CLI) | payer MEDICARE, SELFPAY ==
[2024-11-04 16:39] LABS: Hematocrit 41.0 % (37-47); Hemoglobin 13.3 g/dL (12.0-15.0); Immature Granulocytes Count 0.010 X10^3/uL (0.0-0.0); Mean Corp Hgb Conc 32.4 g/dL (32-36); Mean Corpuscular Volume 93.2 fL (81-99); Mean Platelet Vol. 9.7 fl (6.2-12.0); NRBC Flagged by Analyzer 0 % (0-5); Platelet Count 213 K/mm3 (150-450); RBC Distribution Width CV 14.0 % (11.6-14.6); RBC Distribution Width SD 48.3 fl (35.1-43.9); Red Blood Count 4.40 M/mm3 (4.2-5.4); White Blood Count 5.0 K/mm3 (4.4-11.0)
[2024-11-04 17:26] LABS: FOLATES,SERUM (FOLIC ACID) 13.60 ng/mL (4.60-34.80)
[2024-11-04 17:31] LABS: AST(SGOT) 22 U/L (<=31); Alanine Aminotransfer ALT/SGPT 15 U/L (<=34); Albumin, Serum 4.1 g/dL (3.4-4.8); Alkaline Phosphatase 64 U/L (35-104); Anion Gap 10 (5-15); BUN 29 mg/dL (4-19); BUN/Creat Ratio 26.2 RATIO (10-20); Calcium,Total 9.7 mg/dL (7.6-11.0); Carbon Dioxide 25.7 mmol/L (21.0-32.0); Chloride 105 mmol/L (98-108); Globulin 2.5 g/dL (2.2-4.2); Glucose 102 mg/dL (70-99); Hepatitis C Antibody Nonreactive (Nonreactive); Potassium 4.1 mmol/L (3.3-5.1); Syphilis Antibodies Nonreactive (Nonreactive)
[2024-11-04 18:03] LABS: Cholesterol 214 mg/dL (<=200); Low Density Lipoprotein Calc. 119 mg/dL; Triglycerides 88 mg/dL; Very Low Density Lipoprotein 18 mg/dL (5-40); cholesterol:hdl ratio screen 2.74
[2024-11-04 18:05] LABS: Vitamin B12 453 pg/mL (180-914); Vitamin D,25 Hydroxy 50.9 ng/mL (30-100)
== END | disposition home or self-care (01) ==
LOC: POLAB3 15:22
PROVIDERS: PCP Family Medicine Geriatric Medicine; Visit Provider Family Medicine Geriatric Medicine
DX: Z13.89 Encounter for screening for other disorder (principal); G30.9 Alzheimer's disease, unspecified; E55.9 Vitamin D deficiency, unspecified; Z86.73 Personal history of transient ischemic attack (TIA), and cerebral infarction without residual deficits
CPT/HCPCS: 36415; 80053; 80061; 82306; 82607; 82746; 84443; 85025; 86780; 86803

== ENCOUNTER 2025-01-07 17:42 | Emergency (ER) | payer MEDICARE, SELFPAY ==
[2025-01-07 17:42] VITALS: BP 135/80; PULSE 66; RESP 14; TEMP 36.2; O2SAT 98; BMI 29.6
--- NOTE | 2025-01-07 18:09 | EDS_ITS ---
HPI HPI - Fall History of Present Illness Chief Complaint: Head Injury Narrative Narrative: History and physical mildly limited secondary to dementia. 84-year-old female presents with her grandson because of fall with injury to back of head and left shoulder. She is right-hand dominant. While her grandson states he was not there, he states that his mother was. She lives at home with them. She states she lost her balance and fell backwards striking her head. There was no loss of consciousness. She denies neck pain or other injury except for soreness in her left shoulder area. This happened a few hours prior to arrival. She is unsure of her last tetanus immunization. She sustained an abrasion to the occiput and complains of mild tenderness there. [facility] Medical History Hx of vaginal delivery Depression Anxiety Varicose vein of leg Migraines Dementia Asthma Home Medications ?Medication ?Instructions ?Recorded ?Last Taken ?Type donepezil 10 mg tablet 10 mg PO QHS 08/24/24 History escitalopram oxalate 10 mg tablet 10 mg PO DAILY 08/2408/23/24 History memantine 5 mg tablet 5 mg PO BID 08/24/24 5 History atorvastatin 40 mg tablet 40 mg PO QHS 30 days #30 tab s 08/26/24 Unknown Rx clopidogrel 75 mg tablet 75 mg PO DAILY 30 days #30 t abs 08/26/24 Unknown Rx lisinopril 10 mg tablet 5 mg (1/2 x 10 mg) PO DAILY 1 08/26/24 Unknown Rx month #30 tabs Allergy/AdvReac Type Severity Reaction Status Date / Time Penicillins Allergy unknown Verified 01/07/25 17:43 Family History Mother Diabetes Social History Smoking Status: Never smoker ROS ROS ED ROS Narrative Review of systems positive for fall with abrasion to occiput. Positive left shoulder pain. No neck pain. Denies other injuries. [id number]. EXAM Physical Exam Narrative Exam Narrative: GCS 15. ABCs are intact. HEENT examination shows PERRL, EOMI. Mild tenderness to palpation on occiput without crepitance. 1 cm abrasion, nongaping wound wi thout active bleeding. Neck is soft and supple without vertebral point tenderness or bony step-off. Full range of motion without pain. Minimal diffuse tenderness palpation left proximal humerus. No clinical dislocation. Palpable radial pulse distally, left. Awake, alert, interactive. Cardiovascular examination regular rate and rhythm. Lungs clear to auscultation bilaterally. Abdomen is soft and nontender without guarding or rebound, positive bowel sounds. Const Vital Signs: 01/07/25 17:42 01/07/25 17:58 01/07/25 18:42 Temperature 97.1 F L Temperature Source Temporal Pulse Rate 66 59 L Respiratory Rate 14 16 Respiratory Effort Normal Non-Labored Respiratory Depth Normal Respiratory Pattern Normal Blood Pressure 135/80 H 160/85 H Blood Pressure Mean 98 110 Pulse Ox 98 98 Oxygen Delivery Method Room Air Room Air Room Air 01/07/25 19:00 Temperature Temperature Source Pulse Rate 63 Respiratory Rate 18 Respiratory Effort Respiratory Depth Respiratory Pattern Blood Pressure 158/77 H Blood Pressure Mean 104 Pulse Ox 98 Oxygen Delivery Method Room Air MDM MDM MDM Narrative Medical decision making narrative: Differential diagnosis includes but not limited to closed head injury versus skull fracture versus intracranial hemorrhage. Regarding her shoulder she may have a contusion versus fracture, but I have low clinical suspicion for fracture or dislocation. She declined any analgesics or ice pack. CT of the brain and x-ray of the shoulder will be obtained to help rule out fracture/intracranial hemorrhage. Wound was cleansed by the RN. I reviewed the radiology report of the CT of the brain and there is no acute fracture or acute intracranial process, no hemorrhage. On my independent interpretation of the left shoulder x-ray there are degenerative changes but no evidence of fracture or dislocation. I reviewed the radiology report which confirms my independent interpretation. She was given a Boostrix. At this point in time I feel she be discharged safely home with follow-up. Once again I offered her a Tylenol for analgesia but she declined. Her grandson is comfortable taking her home. Disposition is discharged home in stable condition. History & Record Review Discussion w/independent historian: Patient and Family (Grandson) Radiography Diagnostic Testing: Clinical Impression(s) from Imaging Studies Brain CT 01/07/25 18:09 IMPRESSION: No acute intracranial process. Reading Location: [id number] Shoulder X-Ray 01/07/25 18:20 IMPRESSION: Degenerative changes without fracture or dislocation Reading Location: [facility] Discharge Plan Triage Chief Complaint: Head Injury ED Provider: Sam Mancuso Dx/Rx/DC Orders Clinical Impression: Fall, Contusion of left shoulder, Abrasion of scalp, Closed head injury Instructions: ED Abrasion, ED Scalp Contusion, ED Fall Prevention, ED Shoulder Bruise Prescriptions: No Action donepezil 10 mg tablet 10 mg PO QHS escitalopram oxalate 10 mg tablet 10 mg PO DAILY memantine 5 mg tablet 5 mg PO BID atorvastatin 40 mg Tablet 40 mg PO QHS 30 Days Qty: 30 2RF clopidogrel 75 mg Tablet 75 mg PO DAILY 30 Days Qty: 30 2RF lisinopril 10 mg tablet 5 mg PO DAILY 30 Days Qty: 30 2RF Rx Instructions: Hold for SBP less than 130 mmHg Primary Care Provider: Ru Negron Chi Referrals: Ru Negron Chi, MD [Primary Care Provider, Geriatrics] - 1 Week if not improving Activity Restrictions/Additional Instructions: Tylenol or ibuprofen as needed for pain. Follow-up with your primary care provider in 1 week if not improving. Print Language: Malagasy Disposition Disposition: Home, Self Care
--- NOTE | 2025-01-07 18:09 | CT_ITS ---
PROCEDURE: BRAIN/HEAD WITHOUT CONTRAST N/A REASON FOR EXAM: TRAUMA TECHNIQUE: Procedure Code: CTBR Modality: CT Procedure: BRAIN/HEAD WITHOUT CONTRAST Coronal and Sagittal reconstruction series were provided. One or more dose reduction techniques were used (e.g., Automated exposure control, adjustment of the mA and/or kV according to patient size, use of iterative reconstruction technique. RADIATION DOSE SUMMARY: DLP: 745 mGycm COMPARISON: 08/26/2024 MR FINDINGS: There is no acute infarct, intracranial hemorrhage, or mass effect. There is no hydrocephalus or significant midline shift. There is moderate chronic microvascular ischemic changes and [id number] parenchymal volume loss. No acute, depressed calvarial fractures. No large scalp hematomas. The paranasal sinuses are clear. CT/Brain/Head without Contrast IMPRESSION: No acute intracranial process. Reading Location: [id number]
--- NOTE | 2025-01-07 18:20 | RAD_ITS ---
PROCEDURE: SHOULDER MIN 2 VIEWS 01/07/2025 REASON FOR EXAM: TRAUMA TECHNIQUE: Procedure Code: RADSH Modality: DX Procedure: SHOULDER MIN 2 VIEWS Laterality: Left FINDINGS: Four views of the left shoulder demonstrate degenerative joint space narrowing and soft tissue calcification without fracture. RAD/Shoulder min 2 Views IMPRESSION: Degenerative changes without fracture or dislocation Reading Location: [facility]
[2025-01-07 18:42] VITALS: BP 160/85; PULSE 59; RESP 16; O2SAT 98
[2025-01-07 19:00] VITALS: BP 158/77; PULSE 63; RESP 18; O2SAT 98
[2025-01-07 20:00] VITALS: BP 153/74; PULSE 71; RESP 16; TEMP 36.3; O2SAT 97
== END 2025-01-07 20:25 | disposition home or self-care (01) ==
PROVIDERS: Emergency Provider Emergency Medicine; PCP Family Medicine Geriatric Medicine; Visit Provider Emergency Medicine
DX: S40.012A Contusion of left shoulder, initial encounter (principal); F03.90 Unspecified dementia, unspecified severity, without behavioral disturbance, psychotic disturbance, mood disturbance, and anxiety; W19.XXXA Unspecified fall, initial encounter; S40.812A Abrasion of left upper arm, initial encounter; S00.01XA Abrasion of scalp, initial encounter; F32.A Depression, unspecified; F41.9 Anxiety disorder, unspecified
CPT/HCPCS: 70450; 73030; 90471; 90715; 99282